=== PATIENT | male | born 1975 | race Caucasian/White ===

== ENCOUNTER 2017-03-23 00:02 | Inpatient (IN) | payer BC ==
[2017-03-23] VITALS (41 sets, daily range): BP systolic 72–124; BP diastolic 53–72; PULSE 96–108; RESP 0–31; TEMP 97.3–99.2; O2SAT 91–100
[~2017-03-23] VITALS: Ht 172.7 cm; Wt 78.9 kg
[2017-03-23] MEDS ORDERED: SODIUM CHLOR 0.9% 1000 ML INJ 1,000 ML IV SCH (00:41)
[2017-03-23] MEDS ORDERED: SODIUM CHLORIDE 0.9% FLUSH 5 ML FLUSH IV FLUSH PRN (00:45)
[2017-03-23] MEDS ORDERED: SODIUM CHLOR 0.9% 1000 ML INJ 1,000 ML IV ONE ×2 (00:45→04:45)
[2017-03-23] MEDS ORDERED: ONDANSETRON HCL 4 MG/2 ML VIAL IV PUSH ONE ×2 (00:45→02:45)
[2017-03-23 01:02] LABS: AUTOMATED NEUTROPHIL # 19.9 TH/MM3 (1.8-7.7); BASOPHIL # 0.6 TH/MM3 (0-0.2); BASOPHIL % 2.4 % (0.0-2.0); HEMATOCRIT 57.7 % (39.0-51.0); LYMPH % 5.2 % (9.0-44.0); LYMPHOCYTE # 1.2 TH/MM3 (1.0-4.8); MEAN CELL VOLUME 89.4 FL (80.0-100.0); MEAN CORPUSCULAR HEMOGLOBIN 29.6 PG (27.0-34.0); MEAN CORPUSCULAR HGB CONC 33.1 % (32.0-36.0); MONO % 7.8 % (0.0-8.0); NEUT % 84.6 % (16.0-70.0); PLATELET COUNT 253 TH/MM3 (150-450); RED BLOOD COUNT 6.45 MIL/MM3 (4.50-5.90); RED CELL DISTRIBUTION WIDTH 11.2 % (11.6-17.2); WHITE BLOOD COUNT 23.5 TH/MM3 (4.0-11.0)
[2017-03-23 01:03] LABS: HEMO FLAGS AUTO DIFF
[2017-03-23 01:16] LABS: APTT (PATIENT) 36.3 SEC (24.3-30.1); PROTHROMBIN TIME - PATIENT 11.3 SEC (9.8-11.6)
[2017-03-23] MEDS ORDERED: DEXT 5%-NACL 0.9% 1000 ML INJ 1,000 ML IV SCH (01:18)
--- NOTE | 2017-03-23 01:18 | PD ---
HPI Chief Complaint: GI Complaint Time Seen by Provider: 00:41 Travel History International Travel<30 days: No Contact w/Intl Traveler<30days: No Traveled to known affect area: No History of Present Illness HPI 41-year-old male presents to the emergency department by private transportation the care of family for evaluation of generalized progressive weakness times one week with multiple episodes of vomiting. Patient was reportedly seen in the urgent care on Saturday and prescribed Levsin and Zofran. reports symptoms have not improved and patient is continued to deteriorate. No report of bilious emesis hematemesis or coffee-ground emesis. Patient's had no diarrhea. Patient recently went on camping trip and friend had vomiting and diarrhea. No known dietary indiscretion. Patient's had poor oral intake. reports patient is diabetic and takes no medications. Patient reportedly has lost a large amount of weight over the past 2 years. Patient's had no fever no headache no chest pain no shortness of breath no abdominal pain no decreased urine output no diarrhea no skin or joint pain or swelling. No prior hospital visit here. [facility] Past Medical History Narrative Medical Diabetes, left leg surgery, no tobacco use, nursing notes reviewed Social History Tobacco Use: No Allergies-Medications (Allergen,Severity, Reaction): Coded Allergies: No Known Allergies (Unverified , 03/23/17) Narrative Medication Zofran and Levsin Review of Systems Except as stated in HPI: all other systems reviewed are Neg General / Constitutional: No: Fever, Chills HENT: No: Congestion Cardiovascular: No: Chest Pain or Discomfort Respiratory: No: Shortness of Breath Gastrointestinal: Positive: Nausea, Vomiting, No: Diarrhea, Abdominal Pain Genitourinary: No: Decreased Urinary Output Musculoskeletal: No: Myalgias, Arthralgias Skin: No Rash Neurologic: Positive: Weakness, Dizziness, Change in Mentation Psychiatric: No: Anxiety Hematologic/Lymphatic: No: Easy Bruising Physical Exam Narrative GENERAL: Well-developed lethargic male GCS 14 SKIN: Warm and dry. HEAD: Normocephalic. EYES: No scleral icterus. No injection or drainage. NECK: Supple, trachea midline. No JVD or lymphadenopathy. CARDIOVASCULAR: Regular rate and rhythm without murmurs, gallops, or rubs. RESPIRATORY: Breath sounds equal bilaterally. No accessory muscle use. GASTROINTESTINAL: Abdomen soft, non-tender, nondistended. MUSCULOSKELETAL: No cyanosis, or edema. BACK: Nontender without obvious deformity. No CVA tenderness. Data Data Last Documented VS Vital Signs Date Time Temp Pulse Resp B/P Pulse Ox O2 Delivery O2 Flow Rate FiO2 03/23/17 02:00 100 18 101/58 99 Room Air 03/23/17 00:45 97.4 Orders Electrocardiogram (03/23/17 00:41) Ammonia (03/23/17 00:41) Complete Blood Count With Diff (03/23/17:41) Comprehensive Metabolic Panel (03/23/17 00:41) Creatine Kinase (Cpk) (03/23/17 00:41) Prothrombin Time / Inr (Pt) (03/23/17:41) Act Partial Throm Time (Ptt) (03/23/17:41) Troponin I (03/23/17 00:41) Thyroid Stimulating Hormone (03/23/17 00:41) Urinalysis - C+S If Indicated (03/23/17 00:41) Lactic Acid Sepsis Protocol (03/23/17 00:41) Blood Culture (03/23/17 00:41) Chest, Single Ap (03/23/17 00:41) Ct Brain W/O Iv Contrast(Rout) (03/23/17 00:41) Blood Glucose (03/23/17 00:41) Ecg Monitoring (03/23/17 00:41) Iv Access Insert/Monitor (03/23/17 00:41) Oximetry (03/23/17 00:41) Sodium Chloride 0.9% Flush (Ns Flush) (03/23/17 00:45) Sodium Chlor 0.9% 1000 Ml Inj (Ns 1000 M (03/23/17 00:41) Sodium Chlor 0.9% 1000 Ml Inj (Ns 1000 M (03/23/17 00:45) Ondansetron Inj (Zofran Inj) (03/23/17 00:45) Drug Screen, Random Urine (03/23/17 00:41) Plans Examiner / Telemetry JOSE.Q8H (03/23/17 01:18) ^ Insert Iv (03/23/17 01:18) Diet Npo (03/23/17 Breakfast) Sodium Chlor 0.9% 1000 Ml Inj (Ns 1000 M (03/23/17 01:18) Dext 5%-Nacl 0.9% 1000 Ml Inj (D5w-Ns 10 (03/23/17 01:18) Insulin Human Regular Inj (Novolin R Inj (03/23/17 01:30) Insulin Regular (Iv Infusion) (Novolin R (03/23/17 01:30) Potassium Chlor 40 Meq Premix (Kcl 40 Me (03/23/17 01:30) Potassium Chlor 40 Meq Premix (Kcl 40 Me (03/23/17 01:30) Potassium Chlor 20 Meq Premix (Kcl 20 Me (03/23/17 01:30) Potassium Chlor 20 Meq Premix (Kcl 20 Me (03/23/17 01:30) Potassium Chlor 20 Meq Premix (Kcl 20 Me (03/23/17 01:30) Potassium Chlor 20 Meq Premix (Kcl 20 Me (03/23/17 01:30) Potassium Chlor 20 Meq Premix (Kcl 20 Me (03/23/17 01:30) Potassium Chlor 20 Meq Premix (Kcl 20 Me (03/23/17 01:30) Sodium Bicarbonate 8.4% Inj (Sodium Bica (03/23/17 01:30) Sodium Bicarbonate 8.4% Inj (Sodium Bica (03/23/17 01:30) Sodium Phosphate Inj (Sodium Phosphate I (03/23/17 01:30) Hemoglobin (Hgb) A1c (03/23/17 01:18) Basic Metabolic Panel (Bmp) (03/23/17 12:18) Basic Metabolic Panel (Bmp) (03/23/17 18:18) Basic Metabolic Panel (Bmp) (03/24/17 00:18) Magnesium (Mg) (03/23/17 12:18) Magnesium (Mg) (03/23/17 18:18) Magnesium (Mg) (03/24/17 00:18) Phosphorus (Po4) (03/23/17 12:18) Phosphorus (Po4) (03/23/17 18:18) Phosphorus (Po4) (03/24/17 00:18) Beta Hydroxybutyrate (Acetone) (03/23/17 12:18) Beta Hydroxybutyrate (Acetone) (03/24/17 00:18) Blood Gas Venous Ph (03/23/17 01:18) Piperacil-Tazo 4.5 Gm Premix (Zosyn 4.5 (03/23/17 01:45) Vancomycin Inj (Vancomycin Inj) (03/23/17 01:45) Potassium Chlor 10 Meq Premix (Kcl 10 Me (03/23/17 02:00) Admit Order (Ed Use Only) (03/23/17 ) ^ Saline Lock (03/23/17 02:07) Resp Oxygen Haider C Titrat 1-4 L (03/23/17 ) Notify Dr: Other (03/23/17 02:07) Sodium Chloride 0.9% Flush (Ns Flush) (03/23/17 09:00) Sodium Chloride 0.9% Flush (Ns Flush) (03/23/17 02:15) Labs Laboratory Tests Test 03/23/17 03/23/17 00:43 01:45 White Blood Count 23.5 TH/MM3 Red Blood Count 6.45 MIL/MM3 Hemoglobin 19.1 GM/DL Hematocrit 57.7 % Mean Corpuscular Volume 89.4 FL Mean Corpuscular Hemoglobin 29.6 PG Mean Corpuscular Hemoglobin 33.1 % Concent Red Cell Distribution Width 11.2 % Platelet Count 253 TH/MM3 Mean Platelet Volume 11.5 FL Neutrophils (%) (Auto) 84.6 % Lymphocytes (%) (Auto) 5.2 % Monocytes (%) (Auto) 7.8 % Eosinophils (%) (Auto) 0.0 % Basophils (%) (Auto) 2.4 % Neutrophils # (Auto) 19.9 TH/MM3 Lymphocytes # (Auto) 1.2 TH/MM3 Monocytes # (Auto) 1.8 TH/MM3 Eosinophils # (Auto) 0.0 TH/MM3 Basophils # (Auto) 0.6 TH/MM3 CBC Comment AUTO DIFF Differential Total Cells 100 Counted Neutrophils % (Manual) 63 % Band Neutrophils % 24 % Lymphocytes % 5 % Monocytes % 8 % Neutrophils # (Manual) 20.4 TH/MM3 Differential Comment FINAL DIFF MANUAL Platelet Estimate NORMAL Platelet Morphology Comment NORMAL Red Cell Morphology Comment NORMAL Prothrombin Time 11.3 SEC Prothromb Time International 1.0 RATIO Ratio Activated Partial 36.3 SEC Thromboplast Time Sodium Level 115 MEQ/L Potassium Level 3.0 MEQ/L Chloride Level 72 MEQ/L Carbon Dioxide Level 8.1 MEQ/L Anion Gap 35 MEQ/L Blood Urea Nitrogen 72 MG/DL Creatinine 2.80 MG/DL Estimat Glomerular Filtration 25 ML/MIN Rate Random Glucose 611 MG/DL Lactic Acid Level 2.5 mmol/L Calcium Level 6.6 MG/DL Protein Corrected Calcium 6.7 MG/DL Total Bilirubin 1.0 MG/DL Aspartate Amino Transf 19 U/L (AST/SGOT) Alanine Aminotransferase 16 U/L (ALT/SGPT) Alkaline Phosphatase 100 U/L Ammonia 35 MCMOL/L Total Creatine Kinase 207 U/L Troponin I LESS THAN 0.02 NG/ML Total Protein 7.0 GM/DL Albumin 3.3 GM/DL Thyroid Stimulating Hormone 0.370 uIU/ML 3rd Gen Urine Color YELLOW Urine Turbidity CLEAR Urine pH 5.0 Urine Specific [place] 1.023 Urine Protein 30 mg/dL Urine Glucose (UA) 1000 OR GREATER mg/dL Urine Ketones 80 OR GREATER mg/dL Urine Occult Blood MOD Urine Nitrite NEG Urine Bilirubin NEG Urine Leukocyte Esterase NEG Urine RBC 3-5 /hpf Urine WBC 0-2 /hpf Urine Squamous Epithelial 0-5 /hpf Cells Urine Bacteria NONE /hpf Microscopic Urinalysis Comment CULT NOT INDICATED Venous Blood pH 7.16 Urine Opiates Screen NEG Urine Barbiturates Screen NEG Urine Amphetamines Screen NEG Urine Benzodiazepines Screen NEG Urine Cocaine Screen NEG Urine Cannabinoids Screen NEG MDM Medical Decision Making Medical Screen Exam Complete: Yes Emergency Medical Condition: Yes Medical Record Reviewed: Yes Interpretation(s) Vital Signs Date Time Temp Pulse Resp B/P Pulse Ox O2 Delivery O2 Flow Rate FiO2 03/23/17 01:45 100 18 101/55 100 Room Air 03/23/17 01:30 100 20 102/59 99 Room Air 03/23/17 01:20 98 18 110/66 100 Room Air 03/23/17 01:10 100 18 108/67 100 Room Air 03/23/17 01:00 98 18 103/61 100 Room Air 03/23/17 00:50 96 18 93/59 99 Room Air 03/23/17 00:45 97.4 100 20 84/55 99 Room Air 03/23/17 00:40 98 Room Air 03/23/17 00:30 100 20 84/55 98 03/23/17 00:14 99.2 103 16 72/[address] 03/23/17 0041 Signed Impressions: Service Date/Time: Thursday, March 23, 2017 04:32 - CONCLUSION: 4 mm hyperdense lesion adjacent to left foramen of Antony could be a colloid cyst without evidence of ventricular enlargement. Non-emergent brain MRI is recommended to confirm. Gregory Thomason MD Chest X-Ray 03/23/17 0041 Signed Impressions: Service Date/Time: Thursday, March 23, 2017 01:51 - CONCLUSION: Normal examination. Gregory Thomason MD CBC & BMP Diagram 03/23/17 00:43 Differential Diagnosis DKA, sepsis, electrolyte disturbance, renal failure, dehydration, ACS Narrative Course Patient placed on library monitor IV access obtained EKG sinus rhythm rate [address] elevation or injury pattern change noted poor R progression septally in V1 V2; specimens collected and sent for resulting as well as blood cultures and lactic acid Patient administered 2 L normal saline wide open; bedside glucose high Patient given weight based regular insulin 8 units IV CBC is automated differential leukocytosis with left shift; lactic acid resulted at 2.5; patient administered Zosyn and vancomycin DKA protocol initiated At 1:45 AM informed of abnormal labs specifically Call was placed to pharmacy delivery driver for admission for DKA, severe sepsis/septic shock , electrolyte disturbance, with venous pH of 7.16 and hypokalemia potassium of 3.0. Patient had been administered additional liter of normal saline. The heart rate and blood pressure with good response. GCS 15. Critical Care Narrative Aggregate critical care time was 40 minutes. Time to perform other separately billable procedures was not included in the critical care time. My time did not include minutes spent treating any other patients simultaneously or on activities that did not directly contribute to the patient's treatment. The services I provided to this patient were to treat and/or prevent clinically significant deterioration that could result in: Deteriorating metabolic derangement, septic shock, cardiogenic shock, hypovolemic shock, I provided critical care services requiring my management, as noted below: Chart data review, documentation time, medication orders and management, vital sign assessments/reviewing monitor data, ordering and reviewing lab tests, ordering and interpreting/reviewing x-rays and diagnostic studies, care of the patient and discussion of the patient with the admitting physicians. Procedures Procedure Narrative CENTRAL VENOUS LINE: The site was prepped with Betadine and sterilely draped. It was infiltrated with 1% lidocaine plain. The deep vein cannulation was unsuccessful at entering the right femoral vein. Procedure was discontinued. The site was sterilely dressed. The patient tolerated the procedure well. CENTRAL VENOUS LINE: The site was prepped with Betadine and sterilely draped. It was infiltrated with 1% lidocaine plain. The deep vein was cannulated using normal Seldinger technique. A triple lumen central line was placed in the left femoral vein site and secured with simple interrupted suture. The site was sterilely dressed. The patient tolerated the procedure well. Sepsis Criteria SIRS Criteria (2 or more): Heart rate over 90, WBC > 55217, < 4000 or > 10% bands Severe Sepsis (+one): Hypotension, Acute Oliguria/Renal Failure Physician Communication Physician Communication discussed with Dr Leary will admit to his ICU service to [facility] Diagnosis Primary Impression: DKA (diabetic ketoacidoses) Qualified Code: E13.10 - Diabetic ketoacidosis without coma associated with type 2 diabetes mellitus Additional Impression: Severe sepsis Admitting Information Admitting Physician Requests: Admit Valarie Kaba MD March 23, 2017 01:17
[2017-03-23 01:23] LABS: ALT (GPT) 16 U/L (12-78); ANION GAP 35 MEQ/L (5-15); AST (GOT) 19 U/L (15-37); BICARBONATE 8.1 MEQ/L (21.0-32.0); BLOOD UREA NITROGEN 72 MG/DL (7-18); CHLORIDE 72 MEQ/L (98-107); CREATINE KINASE 207 U/L (39-308); GLOMERULAR FILTRATION RATE 25 ML/MIN (>89)
[2017-03-23] MEDS ORDERED: SODIUM PHOSPHATE INJ 15 MMOL in SODIUM CHLORIDE 0.9% INJ 100 ML IV PRN (01:30)
[2017-03-23] MEDS ORDERED: INSULIN HUMAN REGULAR 1,000 UNITS/10 ML VIAL IV PUSH ONE (01:30)
[2017-03-23] MEDS ORDERED: POTASSIUM CHLOR 40 MEQ PREMIX 100 ML IV PRN ×2 (01:30)
[2017-03-23] MEDS ORDERED: SODIUM BICARBONATE 8.4% SOLN 50 MEQ/50 ML VIAL IV PRN ×2 (01:30)
[2017-03-23] MEDS ORDERED: POTASSIUM CHLOR 20 MEQ PREMIX 100 ML IV PRN ×5 (01:30)
[2017-03-23] MEDS ORDERED: INSULIN REGULAR (IV INFUSION) 100 UNITS in SODIUM CHLORIDE 0.9% INJ 99 ML IV SCH (01:30)
[2017-03-23 01:31] LABS: BANDS 24 % (0-6); NEUTROPHIL # MANUAL DIFF 20.4 TH/MM3 (1.8-7.7); POLYS (SEG NEUTROPHILS) 63 % (16-70); WBC DIFF SAMPLE 100
[2017-03-23 01:32] LABS: PLATELET ESTIMATE SMEAR NORMAL (NORMAL); PLATELET MORPHOLOGY NORMAL (NORMAL); SCAN/DIFF FINAL DIFF MANUAL
[2017-03-23 01:33] LABS: ALKALINE PHOSPHATASE 100 U/L (45-117)
[2017-03-23 01:38] LABS: CALCIUM-PROTEIN CORRECTED 6.7 MG/DL (8.5-10.1)
[2017-03-23 01:39] LABS: SODIUM (NA) 115 MEQ/L (136-145)
[2017-03-23] MEDS ORDERED: PIPERACIL-TAZO 4.5 GM PREMIX 100 ML IV ONE (01:45)
[2017-03-23] MEDS ORDERED: VANCOMYCIN INJ 1,000 MG in SODIUM CHLOR 0.9% 250 ML INJ 250 ML IV ONE (01:45)
[2017-03-23 02:06] LABS: NITRITE,URINE NEG (NEG)
[2017-03-23 02:13] LABS: BLOOD, URINE MOD (NEG); COCAINE, URINE NEG (NEG); GLUCOSE,URINE 1000 OR GREATER mg/dL (NEG); KETONE, URINE 80 OR GREATER mg/dL (NEG); URINE COLOR YELLOW (YELLW/STRAW); WBC, URINE 0-2 /hpf (0-5)
[2017-03-23 02:14] LABS: COMMENT (UR) CULT NOT INDICATED; CULTURE IF INDICATED CULT NOT INDICATED; SQUAMOUS EPITHELIAL CELL URINE 0-5 /hpf (0-5)
[2017-03-23] MEDS ORDERED: SENNOSIDES 8.6 MG TAB PO PRN (02:15)
[2017-03-23] MEDS ORDERED: MISCELLANEOUS NURSING INFORMATION XX SCH (02:15)
[2017-03-23] MEDS ORDERED: CHLORHEXIDINE GLUCONATE 2 % 1 PACK (2 CLOTHS) TOP PRN (02:15)
[2017-03-23] MEDS ORDERED: LACTULOSE SYRUP 20 GM/30 ML CUP PO PRN (02:15)
[2017-03-23] MEDS ORDERED: MAGNESIUM HYDROXIDE SUSP 30 ML CUP PO PRN (02:15)
[2017-03-23] MEDS: POTASSIUM CHLOR 10 MEQ PREMIX 100 ML IV SCH ×3 (02:15→05:45)
[2017-03-23] MEDS ORDERED: Vancomycin Consult Pharmacy 1 EA OTHER SCH (02:15)
[2017-03-23] MEDS ORDERED: BISACODYL 10 MG SUPP RECTAL PRN (02:15)
[2017-03-23] MEDS ORDERED: SODIUM CHLORIDE 0.9% FLUSH 10 ML FLUSH IVF PRN (02:15)
--- NOTE | 2017-03-23 02:19 | RADHPO ---
EXAM DATE/TIME: 03/23/2017 01:51 [facility] COMPARISON: No previous studies available for comparison. INDICATIONS : Syncope. MEDICAL HISTORY : None. SURGICAL HISTORY : None. ENCOUNTER: Initial ACUITY: 1 day PAIN SCORE: 6/10 LOCATION: Bilateral chest FINDINGS: A single view of the chest demonstrates the lungs to be symmetrically aerated without evidence of mas s, infiltrate or effusion. The cardiomediastinal contours are unremarkable. Osseous structures are intact. CONCLUSION: Normal examination. Gregory Thomason MD on March 23, 2017 at 2:18 Board Certified Radiologist. This report was verified electronically.
[2017-03-23 02:22] LABS: AMPHETAMINE, URINE NEG (NEG); BARBITURATES, URINE NEG (NEG)
[2017-03-23] MEDS: SODIUM CHLOR 0.9% 1000 ML INJ 1,000 ML IV SCH ×2 (02:49→07:56)
[2017-03-23 02:54] LABS: LACTIC ACID GHOST NOT REPORTABLE
[2017-03-23] MEDS ORDERED: METOCLOPRAMIDE HCL 10 MG/2 ML VIAL IV PRN ×2 (03:30)
[2017-03-23] MEDS ORDERED: VANCOMYCIN INJ 1,200 MG in SODIUM CHLOR 0.9% 250 ML INJ 250 ML IV SCH (04:00)
--- NOTE | 2017-03-23 04:57 | RADHPO ---
EXAM DATE/TIME: 03/23/2017 04:32 [facility] COMPARISON: No previous studies available for comparison. INDICATIONS : Altered mental status. RADIATION DOSE: 67.38 CTDIvol (mGy) MEDICAL HISTORY : Diabetes mellitus type 2. SURGICAL HISTORY : None. ENCOUNTER: Initial ACUITY: 1 day PAIN SCALE: 0/10 LOCATION: cranial TECHNIQUE: Multiple contiguous axial images were obtained of the head. Using automated exposure control and adj ustment of the mA and/or kV according to patient size, radiation dose was kept as low as reasonably a chievable to obtain optimal diagnostic quality images. FINDINGS: CEREBRUM: There is a 4 mm hyperdense lesion near the foramen of Antony on the left could be a small colloid cys t .The ventricles are normal for age. No evidence of midline shift, mass lesion, hemorrhage or acute infarction. No extra-axial fluid collections are seen. POSTERIOR FOSSA: The cerebellum and brainstem are intact. The 4th ventricle is midline. The cerebellopontine angle i s unremarkable. EXTRACRANIAL: The visualized portion of the orbits is intact. SKULL: The calvaria is intact. No evidence of skull fracture. Hypoplastic right maxillary sinus CONCLUSION: 4 mm hyperdense lesion adjacent to left foramen of Antony could be a colloid cyst without evidence of ventricular enlargement. Non-emergent brain MRI is recommended to confirm. Gregory Thomason MD on March 23, 2017 at 4:54 Board Certified Radiologist. This report was verified electronically.
[2017-03-23] MEDS: HEPARIN SODIUM - SQ 10,000 UNITS/ML VIAL SQ SCH ×2 (04:59→17:26)
[2017-03-23] MEDS: CHLORHEXIDINE GLUCONATE 2 % 1 PACK (2 CLOTHS) TOP SCH (05:46)
[2017-03-23 05:57] LABS: BICARBONATE 9.4 MEQ/L (21.0-32.0); MAGNESIUM 3.4 MG/DL (1.5-2.5)
[2017-03-23 06:05] LABS: POTASSIUM 2.9 MEQ/L (3.5-5.1)
[2017-03-23 06:20] LABS: CALCIUM-PROTEIN CORRECTED 7.1 MG/DL (8.5-10.1)
[2017-03-23] MEDS: ONDANSETRON HCL 4 MG/2 ML VIAL IV PRN (07:44)
[2017-03-23] MEDS: PANTOPRAZOLE SODIUM 40 MG VIAL IV SCH (08:22)
[2017-03-23] MEDS ORDERED: SODIUM CHLOR 0.45% 1000 ML INJ 1,000 ML IV SCH (08:30)
--- NOTE | 2017-03-23 08:42 | HHI.HP ---
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 Date of admission 03/23/2017. Past medical history includes undiagnosed diabetes. Patient was recently on a camping trip [facility] Patient was in his normal state of health until Saturday when experiencing intractable nausea and vomiting. No diarrhea. No hematemesis or coffee ground emesis. Initially treated at urgent care with Levsin and Zofran. Symptoms persisted percent to [facility]. CT head revealed possible 4 mm colloid cyst at left foramen of Antony. Chest x-ray unremarkable. Was noted to be hyponatremic, hypokalemic, leukocytosis with elevated bands with an elevated blood sugar and elevated beta hydroxybutyrate. Was given 2 L normal saline. 8 units IV insulin in the ED initiated on DKA protocol protocol. A left femoral central line placed by ED physician. Review of Systems Constitutional: COMPLAINS OF: Fatigue, Fever, DENIES: Weight gain Endocrine: DENIES: Heat/cold intolerance Eyes: DENIES: Blurred vision, Diplopia Ears, nose, mouth, throat: DENIES: Tinnitus, Sinus Pain Respiratory: COMPLAINS OF: Shortness of breath, DENIES: Apneas Cardiovascular: DENIES: Chest pain Gastrointestinal: COMPLAINS OF: Abdominal pain, Nausea, Vomiting, DENIES: Constipation Genitourinary: DENIES: Sexual dysfunction Musculoskeletal: DENIES: Joint pain Integumentary: DENIES: Abnormal pigmentation, Rash Hematologic/lymphatic: COMPLAINS OF: Bruising Immunologic/allergic: COMPLAINS OF: Urticaria, DENIES: Eczema Neurologic: DENIES: Abnormal gait Psychiatric: COMPLAINS OF: Confusion, DENIES: Anxiety Past Family Social History Allergies: Coded Allergies: No Known Allergies (Unverified , 03/23/17) Past Medical History Diabetes mellitus? Past Surgical History Status post SNF left leg crush injury 1996 Reported Medications None Active Ordered Medications Reviewed in EMR Family History Father and brother with diabetes mellitus. Mother from cancer unknown type Social History Social alcohol. Denies tobacco or IV drug use Physical Exam Vital Signs Vital Signs Date Time Temp Pulse Resp B/P Pulse Ox O2 Delivery O2 Flow Rate FiO2 03/23/17 06:00 105 03/23/17 06:00 102 25 108/65 98 03/23/17 05:30 102 20 105/66 100 03/23/17 05:30 98.0 105 28 97/63 97 03/23/17 05:00 98.5 102 20 110/63 100 Room Air 03/23/17 04:30 103 20 118/61 98 Room Air 03/23/17 04:00 102 20 110/66 97 Room Air 03/23/17 03:30 103 20 103/67 99 Room Air 03/23/17 03:00 100 18 109/65 98 Room Air 03/23/17 02:30 102 20 109/66 99 Room Air 03/23/17 02:29 98 03/23/17 02:00 100 18 101/58 99 Room Air 03/23/17 01:45 100 18 101/55 100 Room Air 03/23/17 01:30 100 20 102/59 99 Room Air 03/23/17 01:20 98 18 110/66 100 Room Air 03/23/17 01:10 100 18 108/67 100 Room Air 03/23/17 01:00 98 18 103/61 100 Room Air 03/23/17 00:50 96 18 93/59 99 Room Air 03/23/17 00:45 97.4 100 20 84/55 99 Room Air 03/23/17 00:40 98 Room Air 03/23/17 00:30 100 20 84/55 98 03/23/17 00:14 99.2 103 16 72/53 98 Physical Exam GENERAL: 40-year-old male, critically ill currently resting in bed in mild respiratory distress likely metabolic SKIN: Warm and dry. Multiple tattoos bilateral upper extremity's. Multiple scabs well-healed bilateral lower extremities HEAD: Atraumatic. Normocephalic. EYES: Pupils equal and round around 3 mm bilaterally and reactive. No scleral icterus. No injection or drainage. ENT: No nasal bleeding or discharge. Mucous membranes pink and light. Oropharynx without erythema. NECK: Trachea midline. No JVD. CARDIOVASCULAR: Tachycardic, RR. S1, S2. No S4 without murmur RESPIRATORY: No accessory muscle use. Clear to auscultation. Breath sounds equal bilaterally. GASTROINTESTINAL: Abdomen soft, tender to deep palpation. Voluntary guarding. No rigidity. This is not a surgical abdomen MUSCULOSKELETAL: Extremities without significant peripheral edema. No obvious deformities. NEUROLOGICAL: Awake and alert. No obvious cranial nerve deficits. Motor grossly within normal limits. Five out of 5 muscle strength in the arms and legs. Raspy speech. Laboratory Laboratory Tests Test 03/23/17 03/23/17 03/23/17 03/23/17 00:43 01:45 03:05 04:53 White Blood Count 23.5 Red Blood Count 6.45 Hemoglobin 19.1 Hematocrit 57.7 Mean Corpuscular Volume 89.4 Mean Corpuscular Hemoglobin 29.6 Mean Corpuscular Hemoglobin 33.1 Concent Red Cell Distribution Width 11.2 Platelet Count 253 Mean Platelet Volume 11.5 Neutrophils (%) (Auto) 84.6 Lymphocytes (%) (Auto) 5.2 Monocytes (%) (Auto) 7.8 Eosinophils (%) (Auto) 0.0 Basophils (%) (Auto) 2.4 Neutrophils # (Auto) 19.9 Lymphocytes # (Auto) 1.2 Monocytes # (Auto) 1.8 Eosinophils # (Auto) 0.0 Basophils # (Auto) 0.6 CBC Comment AUTO DIFF Differential Total Cells 100 Counted Neutrophils % (Manual) 63 Band Neutrophils % 24 Lymphocytes % 5 Monocytes % 8 Neutrophils # (Manual) 20.4 Differential Comment FINAL DIFF MANUAL Platelet Estimate NORMAL Platelet Morphology Comment NORMAL Red Cell Morphology Comment NORMAL Prothrombin Time 11.3 Prothromb Time International 1.0 Ratio Activated Partial 36.3 Thromboplast Time Sodium Level 115 Potassium Level 3.0 Chloride Level 72 Carbon Dioxide Level 8.1 Anion Gap 35 Blood Urea Nitrogen 72 Creatinine 2.80 Estimat Glomerular Filtration 25 Rate Random Glucose 611 Lactic Acid Level 2.5 1.3 Calcium Level 6.6 Protein Corrected Calcium 6.7 Total Bilirubin 1.0 Aspartate Amino Transf 19 (AST/SGOT) Alanine Aminotransferase 16 (ALT/SGPT) Alkaline Phosphatase 100 Ammonia 35 Total Creatine Kinase 207 Troponin I LESS THAN 0.02 Total Protein 7.0 Albumin 3.3 Thyroid Stimulating Hormone 0.370 3rd Gen Urine Color YELLOW Urine Turbidity CLEAR Urine pH 5.0 Urine Specific Lutz 1.023 Urine Protein 30 Urine Glucose (UA) 1000 OR GREATER Urine Ketones 80 OR GREATER Urine Occult Blood MOD Urine Nitrite NEG Urine Bilirubin NEG Urine Leukocyte Esterase NEG Urine RBC 3-5 Urine WBC 0-2 Urine Squamous Epithelial 0-5 Cells Urine Bacteria NONE Microscopic Urinalysis Comment CULT NOT INDICATED Venous Blood pH 7.16 7.19 Urine Opiates Screen NEG Urine Barbiturates Screen NEG Urine Amphetamines Screen NEG Urine Benzodiazepines Screen NEG Urine Cocaine Screen NEG Urine Cannabinoids Screen NEG Test 03/23/17 05:05 Sodium Level 124 Potassium Level 2.9 Chloride Level 85 Carbon Dioxide Level 9.4 Anion Gap 30 Blood Urea Nitrogen 66 Creatinine 2.60 Estimat Glomerular Filtration 27 Rate Random Glucose 377 Calcium Level 6.9 Protein Corrected Calcium 7.1 Phosphorus Level 3.5 Magnesium Level 3.4 Total Protein 6.8 Date/Time Procedure Status Source Growth 03/23/17 02:34 Urine Culture Received Urine Catheterized Urine Pending 03/23/17 00:50 Aerobic Blood Culture Received Blood Peripheral Pending 03/23/17 00:50 Anaerobic Blood Culture Received Blood Peripheral Pending Result Diagram: 03/23/17 0043 03/23/17 0505 Imaging Last Impressions Head CT 03/23/1740 Signed Impressions: Service Date/Time: Thursday, March 23, 2017 04:32 - CONCLUSION: 4 mm hyperdense lesion adjacent to left foramen of Antony could be a colloid cyst without evidence of ventricular enlargement. Non-emergent brain MRI is recommended to confirm. Gregory Thomason MD Chest X-Ray 03/23/1740 Signed Impressions: Service Date/Time: Thursday, March 23, 2017 01:51 - CONCLUSION: Normal examination. Gregory Thomason MD Assessment and Plan Assessment and Plan Neuro/Psych: Acute toxic metabolic encephalopathy 4 mm lesion at left foramen of Antony Encephalopathy likely secondary to metabolic derangement. ABG pending CT head 03/19 revealed a 4 mm lesion at the left frontal neuro. Possible colloid cyst. Nonemergent MRI brain recommended Acetaminophen for fever Marana/morphine as needed for pain management CV: Severe sepsis Hypovolemic shock Lactic acidosis Status post 2 L normal saline ED. Currently on normal saline at 250 cc an hour Lactic acid has cleared. Currently not requiring vasopressors and/or antihypertensives. Follow-up on EKG and troponin. RESP: Acute respiratory insufficiency secondary to metabolic arrangement ABG ordered. Nasal cannula to maintain saturations greater than or equal to 92% Incentive spirometry while awake Chest x-ray revealed no acute cardio pulmonary findings GI: Nausea/vomiting - intractable Hyperammonia Zofran 4 mg every 6 hours as needed for nausea Will order abdominal ultrasound today. Amylase and lipase ordered. Liver function tests within normal limits Lactulose daily. Follow-up ammonia level in a.m. Falcon if needed for accurate I's and O's in a critically ill patient ID Viral etiology needs to be ruled out. No current indication for lumbar puncture at this time. No meningeal signs. Zofran/vancomycin day #1 Pertinent cultures 03/23 - blood cultures 2 -pending 03/23 - UA - pending Influenza ordered RENAL: Acute kidney injury - likely prerenal Renal ultrasound to rule out hydronephrosis Urine eosinophils and electrolytes ordered Serial BMPs monitor for improved creatinine Accurate I's and O's Monitor urine output HEME: Leukocytosis - bandemia Polycythemia - likely secondary to dehydration Elevated PTT Monitor CBC daily. Follow trends Repeat PTT in a.m. Doubt factor deficiency ENDO DKA Status post 2 L normal saline in the ED. Received 8 units insulin IV 1. Insulin drip resumed once potassium has been corrected BMP, mag, phosphorus every 6 hours. Beta hydroxybutyrate every 12 hours. ABG is pending Hemoglobin A1c and lipids ordered FEN Hyponatremia - likely hyperosmolar secondary to hyperglycemia - serum osm pending Hypokalemia Hypermagnesium Replace electrolytes per DKA protocol MSK PT evaluate and treat Access - Utilize left femoral TLC placed 03/23 by ED physician Prophylaxis - GI - Protonix - DVT - SCD/heparin subcutaneous Critical Care: The total critical care time was 55 minutes. Time to perform other separately billable procedures was not included in the critical care time. Code Status Full code Discussed Condition With Patient. PATROL CAPTAIN. Care plan discussed all questions answered. Problem Qualifiers (1) DKA (diabetic ketoacidoses): Qualified Code: E13.10 - Diabetic ketoacidosis without coma associated with type 2 diabetes mellitus (2) Leukocytosis: Qualified Code: D72.825 - Bandemia Ravi Rosario MD March 23, 2017 08:42
[2017-03-23] MEDS: LACTULOSE SYRUP 20 GM/30 ML CUP PO SCH (09:00)
[2017-03-23] MEDS ORDERED: ACETAMINOPHEN/HYDROcodone 325 MG/5 MG TAB PO PRN (09:00)
[2017-03-23] MEDS ORDERED: MORPHINE SULFATE 4 MG/ML INJ IV PRN (09:00)
[2017-03-23] MEDS: SODIUM CHLORIDE 0.9% FLUSH 10 ML FLUSH IV FLUSH SCH ×2 (09:00→21:15)
[2017-03-23] MEDS: DOCUSATE SODIUM 50 MG/SENNA 8.6 MG TAB PO SCH ×2 (09:00→21:00)
[2017-03-23] MEDS ORDERED: ACETAMINOPHEN 325 MG TAB PO PRN (09:00)
[2017-03-23 09:31] LABS: AMYLASE 130 U/L (25-115)
[2017-03-23] MEDS ORDERED: CALCIUM GLUCONATE INJ 1 GM in SODIUM CHLORIDE 0.9% INJ 100 ML IV ONE (10:00)
[2017-03-23 10:19] LABS: BLOOD GAS BASE EXCESS -23.2 mmol/L (-2-2); BLOOD GAS CARBOXYHEMOGLOBIN 1.6 % (0-4); BLOOD GAS HCO3 4 mmol/L (22-26); BLOOD GAS METHEMOGLOBIN 1.5 % (0-2); BLOOD GAS O2 HGB SATURATION 93 % (90-100); BLOOD GAS OXYGEN CONTENT 22.1 Vol % (12.0-20.0); BLOOD GAS PCO2 10 mmHg (38-42); BLOOD GAS PO2 94 mmHg (61-120); BLOOD GAS TOTAL HGB 16.8 G/DL (12.0-16.0); TEMP CORR TO 98.6
[2017-03-23 10:20] LABS: CRITICAL VALUE YES; DRAW SITE RT RADIAL; FIO2 21 %; NUMBER OF ARTERIAL PUNCTURES 1; OXYGEN DEVICE ROOM AIR; STAT NO; ULNAR PULSE PRESENT
[2017-03-23] MEDS ORDERED: SODIUM BICARBONATE 8.4% INJ 50 MEQ/50 ML SYR IV PUSH ONE (11:00)
--- NOTE | 2017-03-23 11:51 | RADHPO ---
EXAM DATE/TIME: 03/23/2017 11:11 [place] COMPARISON: No previous studies available for comparison. INDICATIONS : Pancreatitis is suspected, septic, nausea. ORAL CONTRAST: No oral contrast ingested. RADIATION DOSE: 19.72 CTDIvol (mGy) MEDICAL HISTORY : Sepsis. Diabetes SURGICAL HISTORY : None. ENCOUNTER: Initial ACUITY: 2 days PAIN SCALE: 8/10 LOCATION: abdomen TECHNIQUE: Volumetric scanning of the abdomen was performed. Using automated exposure control and adjustment of the mA and/or kV according to patient size, radiation dose was kept as low as reasonably achievable to obtain optimal diagnostic quality images. FINDINGS: Examination quality degraded by respiratory motion artifact. LOWER LUNGS: The visualized lower lungs are clear. There is motion artifact. LIVER: Homogeneous density without lesion. There is no dilation of the biliary tree. No calcified gallston es. SPLEEN: Normal size without lesion. PANCREAS: No inflammatory changes are appreciated. KIDNEYS: Normal in size and shape. There is no mass, stone, or hydronephrosis. ADRENAL GLANDS: Within normal limits. AORTA/RETROPERITONEAL: There is no aneurysm or lymphadenopathy. BOWEL/MESENTERY: The stomach and visualized small and large bowel demonstrate no abnormality. There is a small hiatal hernia with severe wall thickening versus mass of the distal esophagus. MUSCULOSKELETAL: Within normal limits for patient age. CONCLUSION: 1. Examination quality degraded by motion artifact. However, no pancreas abnormality is identified. 2. The only abnormality seen is a small hiatal hernia with severe wall thickening of the distal esoph caio versus distal esophageal mass. Colten Arce MD on March 23, 2017 at 11:46 Board Certified Radiologist. This report was verified electronically.
[2017-03-23] MEDS: THIAMINE INJ 100 MG in SODIUM CHLORIDE 0.9% INJ 100 ML IV SCH (12:57)
[2017-03-23] MEDS: PIPERACIL-TAZO 2.25 GM PREMIX 50 ML IV SCH ×2 (12:58→17:31)
[2017-03-23] MEDS ORDERED: DEXT 5%-NACL 0.45% 1000 ML INJ 1,000 ML IV SCH (14:00)
[2017-03-23 15:14] LABS: ANION GAP 21 MEQ/L (5-15); BICARBONATE 13.4 MEQ/L (21.0-32.0); BLOOD UREA NITROGEN 42 MG/DL (7-18); CHLORIDE 98 MEQ/L (98-107); GLOMERULAR FILTRATION RATE 41 ML/MIN (>89); POTASSIUM 3.2 MEQ/L (3.5-5.1); SODIUM (NA) 132 MEQ/L (136-145)
[2017-03-23 15:27] LABS: BETA-HYDROXYBUTYRATE 7.15 MMOL/L (0.00-0.39)
[2017-03-23] MEDS ORDERED: DEXTROSE 5% IV SCH ×4 (15:30→17:00)
[2017-03-23] MEDS ORDERED: POTASSIUM CHLORIDE IV SCH ×4 (15:30→17:00)
[2017-03-23] MEDS ORDERED: NACL 0.3% IV SCH (15:30)
--- NOTE | 2017-03-23 16:30 | EKG ---
Date Performed: 03/23/2017 Time Performed: 00:57:24 PTAGE: 41 years EKG: Sinus rhythm . Low QRS voltages in precordial leads Nonspecific ST-T change Borderline ECG NO PREVIOUS TRACING DOCTOR: Pedro Alvarez Interpretating Date/Time 03/23/2017 16:29:55
[2017-03-23] MEDS ORDERED: SODIUM PHOSPHATE INJ 30 MMOL in SODIUM CHLOR 0.9% 250 ML INJ 250 ML IV ONE ×2 (17:00→23:00)
[2017-03-23] MEDS ORDERED: POTASSIUM CHLORIDE INJ 30 MEQ in SODIUM CHLORIDE 0.9% INJ 100 ML IV-CENTRAL ONE (17:00)
[2017-03-23] MEDS ORDERED: [UNRECOGNIZED DRUG - OTHER] IV SCH ×3 (17:00)
[2017-03-23] MEDS ORDERED: SODIUM CHLORIDE IV SCH ×3 (17:00)
[2017-03-23 18:58] LABS: BICARBONATE 19.2 MEQ/L (21.0-32.0)
[2017-03-23 19:01] LABS: POTASSIUM 2.9 MEQ/L (3.5-5.1)
[2017-03-23] MEDS: POTASSIUM CHLOR 40 MEQ PREMIX 100 ML IV SCH ×2 (20:58→22:59)
[2017-03-23] MEDS: POTASSIUM CHLORIDE INJ 10 MEQ in DEXTROSE 5%-NACL 0.225% INJ 1,000 ML IV SCH (21:13)
[2017-03-24] VITALS (20 sets, daily range): BP systolic 98–120; BP diastolic 55–72; PULSE 90–108; RESP 18–28; TEMP 98.5–98.8; O2SAT 91–97
[2017-03-24] MEDS: PIPERACIL-TAZO 2.25 GM PREMIX 50 ML IV SCH (01:00)
[2017-03-24] MEDS: HEPARIN SODIUM - SQ 10,000 UNITS/ML VIAL SQ SCH ×2 (01:00→13:45)
[2017-03-24 03:25] LABS: MAGNESIUM 2.8 MG/DL (1.5-2.5)
[2017-03-24] MEDS: POTASSIUM CHLORIDE INJ 10 MEQ in DEXTROSE 5%-NACL 0.225% INJ 1,000 ML IV SCH (03:47)
[2017-03-24] MEDS: CHLORHEXIDINE GLUCONATE 2 % 1 PACK (2 CLOTHS) TOP SCH (04:00)
[2017-03-24 04:35] LABS: BASOPHIL # 0.2 TH/MM3 (0-0.2); HEMATOCRIT 39.9 % (39.0-51.0); HEMO FLAGS DIFF FINAL; LYMPH % 8.6 % (9.0-44.0); LYMPHOCYTE # 0.7 TH/MM3 (1.0-4.8); MEAN CELL VOLUME 87.8 FL (80.0-100.0); MEAN CORPUSCULAR HEMOGLOBIN 30.5 PG (27.0-34.0); MEAN CORPUSCULAR HGB CONC 34.7 % (32.0-36.0); MONO % 8.5 % (0.0-8.0); NEUT % 80.9 % (16.0-70.0); PLATELET COUNT 123 TH/MM3 (150-450); RED BLOOD COUNT 4.55 MIL/MM3 (4.50-5.90); RED CELL DISTRIBUTION WIDTH 11.7 % (11.6-17.2); WHITE BLOOD COUNT 8.6 TH/MM3 (4.0-11.0)
[2017-03-24 04:45] LABS: CHLORIDE 104 MEQ/L (98-107); POTASSIUM 3.5 MEQ/L (3.5-5.1); SODIUM (NA) 135 MEQ/L (136-145)
[2017-03-24] MEDS ORDERED: VANCOMYCIN INJ 1,250 MG in SODIUM CHLOR 0.9% 250 ML INJ 250 ML IV SCH (05:00)
[2017-03-24 05:03] LABS: ALKALINE PHOSPHATASE 61 U/L (45-117); ALT (GPT) 12 U/L (12-78); ANION GAP 12 MEQ/L (5-15); AST (GOT) 6 U/L (15-37); BICARBONATE 18.6 MEQ/L (21.0-32.0); BLOOD UREA NITROGEN 18 MG/DL (7-18); GLOMERULAR FILTRATION RATE 60 ML/MIN (>89); MAGNESIUM 2.8 MG/DL (1.5-2.5); TOTAL BILIRUBIN ADULT 0.7 MG/DL (0.2-1.0)
--- NOTE | 2017-03-24 06:21 | HHI.CCPN ---
Subjective Remarks/Hospital Course 41-year-old male. Date of admission 03/23/2017. Past medical history includes undiagnosed diabetes. Patient was recently on a camping trip [facility] Patient was in his normal state of health until Saturday when experiencing intractable nausea and vomiting. No diarrhea. No hematemesis or coffee ground emesis. Initially treated at urgent care with Levsin and Zofran. Symptoms persisted percent to [facility]. CT head revealed possible 4 mm colloid cyst at left foramen of Antony. Chest x-ray unremarkable. Was noted to be hyponatremic, hypokalemic, leukocytosis with elevated bands with an elevated blood sugar and elevated beta hydroxybutyrate. Was given 2 L normal saline. 8 units IV insulin in the ED initiated on DKA protocol protocol. A left femoral central line placed by ED physician. Subjective 03/24: Mental status much improved this AM. Anion gap is closed. Did not initiate tube feeding secondary to esophageal's edema GI will assess today. On insulin drip at 2 units an hour. Continues to have raspy voice. Objective Vital Signs Date Time Temp Pulse Resp B/P Pulse Ox O2 Delivery O2 Flow Rate FiO2 03/24/17 05:01 92 20 98/62 97 03/24/17 04:01 98.5 03/23/17 08:00 21 03/23/17 05:00 Room Air Intake and Output 03/23/17 03/23/17 03/24/17 08:00 16:00 00:00 Intake Total 3100 ml 2575 ml 1655 ml Output Total 2450 ml 1825 ml 1900 ml Balance 650 ml 750 ml -245 ml Result Diagram: 03/24/17 0353 03/24/17 0353 Other Results Microbiology Date/Time Procedure Status Source Growth 03/23/17 02:34 Urine Culture Received Urine Catheterized Urine Pending 03/23/17 00:50 Aerobic Blood Culture Received Blood Peripheral Pending 03/23/17 00:50 Anaerobic Blood Culture Received Blood Peripheral Pending Imaging Last Impressions Head CT 03/23/17 0041 Signed Impressions: Service Date/Time: Thursday, March 23, 2017 04:32 - CONCLUSION: 4 mm hyperdense lesion adjacent to left foramen of Antony could be a colloid cyst without evidence of ventricular enlargement. Non-emergent brain MRI is recommended to confirm. Gregory Thomason MD Chest X-Ray 03/23/17 0041 Signed Impressions: Service Date/Time: Thursday, March 23, 2017 01:51 - CONCLUSION: Normal examination. Gregory Thomason MD Abdomen CT 03/23/17 0000 Signed Impressions: Service Date/Time: Thursday, March 23, 2017 11:11 - CONCLUSION: 1. Examination quality degraded by motion artifact. However, no pancreas abnormality is identified. 2. The only abnormality seen is a small hiatal hernia with severe wall thickening of the distal esophagus versus distal esophageal mass. Colten Arce MD Objective Remarks GENERAL: 40-year-old male, critically ill currently resting in bed in no acute distress SKIN: Warm and dry. Multiple tattoos bilateral upper extremity's. Multiple scabs well-healed bilateral lower extremities HEAD: Atraumatic. Normocephalic. EYES: Pupils equal and round around 3 mm bilaterally and reactive. No scleral icterus. No injection or drainage. ENT: No nasal bleeding or discharge. Mucous membranes pink and light. Oropharynx without erythema. NECK: Trachea midline. No JVD. CARDIOVASCULAR: Tachycardic, RR. S1, S2. No S4 without murmur RESPIRATORY: No accessory muscle use. Clear to auscultation. Breath sounds equal bilaterally. GASTROINTESTINAL: Abdomen soft, currently nontender to palpation. Hypoactive bowel sounds MUSCULOSKELETAL: Extremities without significant peripheral edema. No obvious deformities. NEUROLOGICAL: Awake and alert. No obvious cranial nerve deficits. Motor grossly within normal limits. Five out of 5 muscle strength in the arms and legs. Raspy speech. Vascular Central Line Catheter: Yes Assessment to: Continue Date of Insertion: March 22, 2017 Line: Central Venous Catheter Side: Right Location: Femoral A/P Assessment and Plan Neuro/Psych: Acute toxic metabolic encephalopathy 4 mm lesion at left foramen of Antony Encephalopathy likely secondary to metabolic derangement. CT head 03/19 revealed a 4 mm lesion at the left frontal neuro. Possible colloid cyst. Nonemergent MRI brain recommended Acetaminophen for fever Ralph/morphine as needed for pain management CV: Severe sepsis Hypovolemic shock Lactic acidosis Status post 2 L normal saline ED. Currently on D5 1 quarter normal saline with 10 mEq KCl at season hour Lactic acid has cleared. Currently not requiring vasopressors and/or antihypertensives. RESP: Acute respiratory insufficiency secondary to metabolic arrangement - resolved Nasal cannula to maintain saturations greater than or equal to 92% Incentive spirometry while awake Chest x-ray revealed no acute cardio pulmonary findings GI: Nausea/vomiting - intractable Hyperammonia - resolved Lower esophageal inflammation versus mass Mild pancreatitis Currently nothing by mouth due to esophageal edema likely secondary to protracted nausea and vomiting Zofran 4 mg every 6 hours as needed for nausea CT abdomen/pelvis revealed distal esophageal swelling/inflammation versus mass. She has been consulted routine recommendations Amylase and lipase today repeat Liver function tests within normal limits Lactulose daily. Follow-up ammonia level in a.m. was 12. On lactulose 30 cc daily bowel regimen. Protonix 40 mg IV daily for GI prophylaxis Falcon if needed for accurate I's and O's in a critically ill patient ID Viral etiology needs to be ruled out. No current indication for lumbar puncture at this time. No meningeal signs. Zofran/vancomycin day #2 - we'll discontinue today Pertinent cultures 03/23 - blood cultures 2 -pending 03/23 - UA - pending Influenza ordered RENAL: Acute kidney injury - likely prerenal - resolving CT abdomen/pelvis 03/23 did not reveal hydronephrosis Urine eosinophils negative. Serial BMPs monitor for improved creatinine Accurate I's and O's Monitor urine output HEME: Leukocytosis - bandemia - resolving Polycythemia - likely secondary to dehydration - resolved Elevated PTT Monitor CBC daily. Follow trends Repeat PTT in a.m. Doubt factor deficiency ENDO DKA Status post 2 L normal saline in the ED. Received 8 units insulin IV 1. Insulin drip resumed currently at 2 units an hour BMP, mag, phosphorus at 1400 hrs. today Hemoglobin A1c and lipids ordered FEN Hyponatremia - Hypokalemia Hypermagnesium Hypophosphatemia 30 mmol sodium phosphate 1 now. Recheck this afternoon Replace electrolytes per DKA protocol MSK PT evaluate and treat Access - Utilize left femoral TLC placed 03/23 by ED physician Prophylaxis - GI - Protonix - DVT - SCD/heparin subcutaneous Critical Care: The total care time was 35 minutes. Time to perform other separately billable procedures was not included in the critical care time. Ravi Rosario MD March 24, 2017 06:21
[2017-03-24] MEDS ORDERED: SODIUM PHOSPHATE INJ 30 MMOL in SODIUM CHLOR 0.9% 250 ML INJ 250 ML IV ONE ×2 (07:00→15:30)
[2017-03-24] MEDS: PANTOPRAZOLE SODIUM 40 MG VIAL IV SCH (09:28)
[2017-03-24] MEDS: THIAMINE INJ 100 MG in SODIUM CHLORIDE 0.9% INJ 100 ML IV SCH (09:29)
[2017-03-24] MEDS: DOCUSATE SODIUM 50 MG/SENNA 8.6 MG TAB PO SCH ×2 (09:30→21:00)
[2017-03-24] MEDS: POTASSIUM CHLOR 20 MEQ PREMIX 100 ML IV PRN (09:30)
[2017-03-24] MEDS: LACTULOSE SYRUP 20 GM/30 ML CUP PO SCH (09:30)
[2017-03-24] MEDS: SODIUM CHLORIDE 0.9% FLUSH 10 ML FLUSH IV FLUSH SCH ×2 (09:31→21:00)
--- NOTE | 2017-03-24 10:01 | MB ---
cc: EAGLE EGAN MD DATE OF CONSULTATION: 03/24/2017 REASON FOR CONSULTATION: Intractable nausea and vomiting. HISTORY OF PRESENT ILLNESS A 41-year-old male patient who was admitted yesterday with intractable nausea and vomiting that started several days before the admission with past medical history of undiagnosed diabetes. The patient denies any abdominal pain associated with nausea or vomiting, denies any diarrhea. No hematemesis or coffee-ground material. He was initially treated in the emergency room with Levsin and Zofran. Symptoms persisted afterwards and was admitted for further evaluation. On this admission the patient was noted to have metabolic derangement in the form of hyponatremia, hypokalemia, leukocytosis with bandemia, elevated blood sugar and ketones. The patient was treated in the emergency room as a case of diabetic ketoacidosis. Part of the evaluation the patient had a CT scan of the abdomen that showed a small hiatal hernia and severe wall thickening at the distal esophagus, with the possibility of distal esophageal mass. Also during the evaluation the patient was found to have increased amylase and lipase but his CT scan was negative for pancreatitis. GI was consulted for further evaluation of the esophageal mass and pancreatitis. At the current time, the patient is lethargic, slightly confused and unable to obtain proper history from him, dosing off during the interview. No nausea or vomiting since admission. His metabolic derangement improved significantly. The patient denies any specific symptoms. REVIEW OF SYSTEMS: All 14 point review of systems negative except for the ones mentioned in the history of present illness. PAST MEDICAL HISTORY: 1. Diabetes mellitus. 2. Left leg surgery. ALLERGIES NO KNOWN DRUG ALLERGIES. MEDICATIONS None. FAMILY HISTORY Noncontributory. SOCIAL HISTORY The patient denies smoking. No history of alcohol use or abuse. PHYSICAL EXAMINATION: At the current time the patient appears to be comfortable, slightly lethargic, oriented, hemodynamically stable with vital signs of pulse of 92, respiratory rate of 20, blood pressure 120/70, pulse oximetry of 93. HEAD AND NECK: Examination normocephalic, atraumatic. Pupils equal and reactive to light. Supple neck. No lymphadenopathy. No thyromegaly. CHEST: Clear to auscultation bilaterally. No crackles or wheezes. HEART: Regular rate and rhythm. No murmurs. ABDOMEN: Soft, nontender. No hepatosplenomegaly. No palpable masses. EXTREMITIES: Normal pulses, no edema. NEUROLOGIC: Difficult to assess at the current time. No focal motor or sensory deficit. Cranial nerves grossly intact. SKIN: No lesions or rashes. LABORATORY DATA White count 8.6 today down from 23.5, hemoglobin 13.9 down from 19.1, hematocrit 39.9 down from 57, platelet count of 123. Electrolytes showed sodium of 135, potassium 35, bicarb of 18.6, creatinine 1.3. ALT/AST within normal limits. Alkaline phosphatase 61. Amylase 150, lipase 1500. ASSESSMENT/PLAN A 41-year-old male patient who presents with the following problems: 1. Intractable nausea and vomiting with new-onset diabetes and diabetic ketoacidosis. 2. Abnormal CT scan showing evidence of thickness of the lower esophagus suggestive of possible lesion or edema at the lower esophagus. 3. Increase in amylase, lipase suggestive of acute pancreatitis. 4. Severe dehydration with a drop in hemoglobin from baseline with hydration. 5. Increased ammonia level with confusion episodes in a patient not known to have chronic liver disease. RECOMMENDATIONS 1. Continue supportive care and correction of his metabolic derangement and dehydration, and treatment for DKA. 2. Will proceed with upper endoscopy once the patient is stable. 3. Antiemetic with Zofran. 4. IV proton pump inhibitor. 5. Complete bowel rest and daily amylase and lipase. 6. Supportive care. Will follow up with you. Thank you for the consultation. Eagle MUÑOZ /9:00 AM /9:48 AM YESSY
[2017-03-24] MEDS ORDERED: GADODIAMIDE PF 287 MG/ML 20 ML VIAL (for RAD MRI) IV ONE (11:05)
--- NOTE | 2017-03-24 11:41 | RADHPO ---
EXAM DATE/TIME: 03/24/2017 10:58 [facility] COMPARISON: CT BRAIN W/O CONTRAST, March 23, 2017, 4:32. INDICATIONS : Vomiting. Abnormal CT. CONTRAST: 15 cc Omniscan (gadodiamide) IV MEDICAL HISTORY : Diabetes mellitus type 2. SURGICAL HISTORY : None. ENCOUNTER: Initial ACUITY: 1 day PAIN SCORE: 0/10 LOCATION: cranial TECHNIQUE: Multiplanar, multisequence MRI of the brain was performed both prior to and following the administrat ion of paramagnetic contrast. FINDINGS: CEREBRUM: The ventricles are normal. No evidence of midline shift, mass lesion, hemorrhage or acute infarction . No extraaxial fluid collections are seen. The pituitary gland and suprasellar cistern are normal in configuration. WHITE MATTER: No significant signal abnormalities are seen in the white matter. POSTERIOR FOSSA: The cerebellum and brainstem demonstrate no acute finding. The 4th ventricle is midline. The cerebel lopontine angle is unremarkable. The cerebellar tonsils are normal in position. DIFFUSION IMAGING: No focal areas of restricted diffusion are seen. No evidence of acute infarction. EXTRACRANIAL: The visualized portions of the orbits and paranasal sinuses are unremarkable. POST-CONTRAST: No abnormal areas of parenchymal or dural enhancement. No evidence of blood-brain barrier breakdown. CONCLUSION: 1. The 4 mm hyperdense area at the foramen of Antony documented on recent noncontrast head CT is not visible on this examination. The concern is for a small colloid cyst. If these lesions are small they can be very difficult if not impossible to visualize on MRI. There is no associated ventriculomegaly . I cannot completely exclude that the CT finding represents a very small colloid cyst. 2. Remainder of the examination is within normal limits. Colten Arce MD on March 24, 2017 at 11:31 Board Certified Radiologist. This report was verified electronically.
[2017-03-24 12:43] LABS: HEMOGLOBIN A1a 1.3 %; HEMOGLOBIN Ao 77.1 %; HEMOGLOBIN F 1.6 %; HEMOGLOBIN LA1C 2.4 %; HEMOGLOBIN P3 5.2 %
[2017-03-24] MEDS: D5-1/2 NS + KCL 20 MEQ INJ 1,000 ML IV SCH ×2 (13:14→21:58)
[2017-03-24 15:01] LABS: POTASSIUM 3.7 MEQ/L (3.5-5.1)
[2017-03-24 15:04] LABS: BICARBONATE 14.2 MEQ/L (21.0-32.0); MAGNESIUM 2.6 MG/DL (1.5-2.5)
[2017-03-24 15:28] LABS: BETA-HYDROXYBUTYRATE 5.68 MMOL/L (0.00-0.39)
[2017-03-24] MEDS ORDERED: POTASSIUM CHLOR 20 MEQ PREMIX 100 ML IV ONE (15:30)
[2017-03-24 19:55] LABS: HDL CHOLESTEROL 51.8 MG/DL (40.0-60.0)
[2017-03-24] MEDS: PIPERACIL-TAZO 4.5 GM PREMIX 100 ML IV SCH (21:57)
[2017-03-24] MEDS: D5-1/2 NS + KCL 10 MEQ INJ 1,000 ML IV SCH (22:53)
[2017-03-25] VITALS (24 sets, daily range): BP systolic 98–117; BP diastolic 53–66; PULSE 92–104; RESP 21–28; TEMP 98.3–99.5; O2SAT 92–97
[2017-03-25 00:15] LABS: POTASSIUM 3.4 MEQ/L (3.5-5.1)
[2017-03-25 00:18] LABS: BICARBONATE 18.8 MEQ/L (21.0-32.0)
[2017-03-25] MEDS: POTASSIUM CHLOR 20 MEQ PREMIX 100 ML IV PRN (01:39)
[2017-03-25] MEDS: HEPARIN SODIUM - SQ 10,000 UNITS/ML VIAL SQ SCH ×2 (01:40→15:08)
[2017-03-25] MEDS: CHLORHEXIDINE GLUCONATE 2 % 1 PACK (2 CLOTHS) TOP SCH (04:00)
[2017-03-25] MEDS: D5-1/2 NS + KCL 10 MEQ INJ 1,000 ML IV SCH ×3 (04:15→20:15)
[2017-03-25 04:36] LABS: CHLORIDE 105 MEQ/L (98-107); POTASSIUM 3.6 MEQ/L (3.5-5.1); SODIUM (NA) 136 MEQ/L (136-145)
[2017-03-25 04:41] LABS: ANION GAP 13 MEQ/L (5-15); BICARBONATE 18.3 MEQ/L (21.0-32.0); BLOOD UREA NITROGEN 8 MG/DL (7-18); MAGNESIUM 2.5 MG/DL (1.5-2.5)
[2017-03-25 04:43] LABS: ALT (GPT) 11 U/L (12-78); AST (GOT) 8 U/L (15-37); GLOMERULAR FILTRATION RATE 82 ML/MIN (>89)
[2017-03-25 04:44] LABS: TOTAL BILIRUBIN ADULT 0.8 MG/DL (0.2-1.0)
[2017-03-25] MEDS: PIPERACIL-TAZO 4.5 GM PREMIX 100 ML IV SCH ×4 (04:45→22:04)
[2017-03-25 04:46] LABS: ALKALINE PHOSPHATASE 59 U/L (45-117)
[2017-03-25 04:47] LABS: CREATINE KINASE 28 U/L (39-308)
[2017-03-25 06:26] LABS: AUTOMATED NEUTROPHIL # 7.5 TH/MM3 (1.8-7.7); BASOPHIL % 0.4 % (0.0-2.0); EOSINOPHIL % 0.2 % (0.0-4.0); LYMPH % 7.3 % (9.0-44.0); LYMPHOCYTE # 0.7 TH/MM3 (1.0-4.8); MEAN CELL VOLUME 87.7 FL (80.0-100.0); MEAN CORPUSCULAR HEMOGLOBIN 29.3 PG (27.0-34.0); MEAN CORPUSCULAR HGB CONC 33.3 % (32.0-36.0); MONO % 10.9 % (0.0-8.0); NEUT % 81.2 % (16.0-70.0); PLATELET COUNT 139 TH/MM3 (150-450); RED BLOOD COUNT 4.56 MIL/MM3 (4.50-5.90); RED CELL DISTRIBUTION WIDTH 12.2 % (11.6-17.2); WHITE BLOOD COUNT 9.2 TH/MM3 (4.0-11.0)
[2017-03-25 06:33] LABS: HEMO FLAGS AUTO DIFF
[2017-03-25] MEDS ORDERED: DC Insulin drip 2 hrs post basal insulin dose ONE (06:45)
[2017-03-25] MEDS ORDERED: DEXTROSE 50% IN WATER 50 ML VIAL(D50) IV PRN (06:45)
[2017-03-25] MEDS ORDERED: GLUCAGON 1 MG/ML VIAL OTHER PRN (06:45)
[2017-03-25] MEDS ORDERED: DC previous DKA orders (HMC 1917) ONE (06:45)
[2017-03-25] MEDS ORDERED: INSULIN REGULAR (IV INFUSION) 100 UNITS in SODIUM CHLORIDE 0.9% INJ 99 ML IV SCH (07:00)
[2017-03-25 07:06] LABS: BANDS 19 % (0-6); DOHLE BODIES PRESENT (NONE SEEN); NEUTROPHIL # MANUAL DIFF 7.5 TH/MM3 (1.8-7.7); PLATELET ESTIMATE SMEAR LOW (NORMAL); PLATELET MORPHOLOGY NORMAL (NORMAL); POLYS (SEG NEUTROPHILS) 62 % (16-70); SCAN/DIFF FINAL DIFF MANUAL; WBC DIFF SAMPLE 100
--- NOTE | 2017-03-25 07:09 | PD.TRANSFR ---
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 Date of admission 03/23/2017. Past medical history includes undiagnosed diabetes. Patient was recently on a camping trip [facility] Patient was in his normal state of health until Saturday when experiencing intractable nausea and vomiting. No diarrhea. No hematemesis or coffee ground emesis. Initially treated at urgent care with Levsin and Zofran. Symptoms persisted percent to [facility]. CT head revealed possible 4 mm colloid cyst at left foramen of Antony. Chest x-ray unremarkable. Was noted to be hyponatremic, hypokalemic, leukocytosis with elevated bands with an elevated blood sugar and elevated beta hydroxybutyrate. Was given 2 L normal saline. 8 units IV insulin in the ED initiated on DKA protocol protocol. A left femoral central line placed by ED physician. Subjective 03/24: Mental status much improved this AM. Anion gap is closed. Did not initiate tube feeding secondary to esophageal's edema GI will assess today. On insulin drip at 2 units an hour. Continues to have raspy voice. 03/25: Awake and alert, resting in bed comfortably. Raspy voice persists. States that he feels much better. Denies any nausea or vomiting. Denies any abdominal pain. Currently is NPO following GI eval or deciding regarding EGD. Insulin drip held and being started on Levemir as his anion gap is corrected. Continuing D5 1/2NS at 125 cc per hour as he is currently nothing by mouth pending GI clearance Objective Vital Signs Date Time Temp Pulse Resp B/P Pulse Ox O2 Delivery O2 Flow Rate FiO2 03/25/17 06:15 98 27 97 03/25/17 06:00 98.7 117/66 03/24/17 21:34 Nasal Cannula 2.00 03/23/17 08:00 21 Intake and Output 03/24/17 03/24/17 03/25/17 08:00 16:00 00:00 Intake Total 1595 ml 0 ml 900 ml Output Total 700 ml 1500 ml 700 ml Balance 895 ml -1500 ml 200 ml Result Diagram: 03/25/17 0520 03/25/17 0300 Imaging Last Impressions Head CT 03/23/17 004 Signed Impressions: Service Date/Time: Thursday, March 23, 2017 04:32 - CONCLUSION: 4 mm hyperdense lesion adjacent to left foramen of Antony could be a colloid cyst without evidence of ventricular enlargement. Non-emergent brain MRI is recommended to confirm. Gregory Thomason MD Chest X-Ray 03/23/17 004 Signed Impressions: Service Date/Time: Thursday, March 23, 2017 01:51 - CONCLUSION: Normal examination. Gregory Thomason MD Abdomen CT 03/23/17 0000 Signed Impressions: Service Date/Time: Thursday, March 23, 2017 11:11 - CONCLUSION: 1. Examination quality degraded by motion artifact. However, no pancreas abnormality is identified. 2. The only abnormality seen is a small hiatal hernia with severe wall thickening of the distal esophagus versus distal esophageal mass. Colten Arce MD Objective Remarks GENERAL: 40-year-old male, critically ill currently resting in bed in no acute distress SKIN: Warm and dry. Multiple tattoos bilateral upper extremity's. Multiple scabs well-healed bilateral lower extremities HEAD: Atraumatic. Normocephalic. EYES: Pupils equal and round around 3 mm bilaterally and reactive. No scleral icterus. No injection or drainage. ENT: No nasal bleeding or discharge. Mucous membranes pink and light. Oropharynx without erythema. NECK: Trachea midline. No JVD. CARDIOVASCULAR: Tachycardic, RR. S1, S2. No S4 without murmur RESPIRATORY: No accessory muscle use. Clear to auscultation. Breath sounds equal bilaterally. GASTROINTESTINAL: Abdomen soft, currently nontender to palpation. Hypoactive bowel sounds MUSCULOSKELETAL: Extremities without significant peripheral edema. No obvious deformities. NEUROLOGICAL: Awake and alert. No obvious cranial nerve deficits. Motor grossly within normal limits. Five out of 5 muscle strength in the arms and legs. Raspy speech. Vascular Central Line Catheter: Yes Assessment to: Remove Date of Insertion: March 22, 2017 Line: Central Venous Catheter Side: Right Location: Femoral A/P Assessment and Plan Neuro/Psych: Acute toxic metabolic encephalopathy 4 mm lesion at left foramen of Antony Encephalopathy likely secondary to metabolic derangement. CT head 03/19 revealed a 4 mm lesion a leftt foramen of Morales. Possible colloid cyst. Nonemergent MRI brain recommended Acetaminophen for fever [place]/morphine as needed for pain management CV: Severe sepsis Hypovolemic shock Lactic acidosis Status post 2 L normal saline ED. Currently on D5 1/2normal saline with 10 mEq KCl at 125cc/hr Lactic acid has cleared. Currently not requiring vasopressors and/or antihypertensives. RESP: Acute respiratory insufficiency secondary to metabolic arrangement - resolved Nasal cannula to maintain saturations greater than or equal to 92% Incentive spirometry while awake Chest x-ray revealed no acute cardio pulmonary findings GI: Nausea/vomiting - intractable Hyperammonia - resolved Lower esophageal inflammation versus mass Mild pancreatitis Currently nothing by mouth due to esophageal edema likely secondary to protracted nausea and vomiting Zofran 4 mg every 6 hours as needed for nausea CT abdomen/pelvis revealed distal esophageal swelling/inflammation versus mass. GI consult noted - recommended nothing by mouth and planning on EGD. Amylase and lipase normalized Liver function tests within normal limits Lactulose daily. On lactulose 30 cc daily bowel regimen. Protonix 40 mg IV daily for GI prophylaxis Falcon if needed for accurate I's and O's in a critically ill patient ID Viral etiology needs to be ruled out. No current indication for lumbar puncture at this time. No meningeal signs. vancomycin day -discontinued on 03/24. Remains on Zosyn for empiric antibiotic coverage Pertinent cultures 03/23 - blood cultures 2 -negative 03/23 - UA - no growth Sputum cultures pending Influenza ordered RENAL: Acute kidney injury - likely prerenal - resolving CT abdomen/pelvis 03/23 did not reveal hydronephrosis Urine eosinophils negative. Strict intake output, monitor and replete electro lites, follow BUN/creatinine. Continue IV hydration HEME: Leukocytosis - bandemia - resolving Polycythemia - likely secondary to dehydration - resolved Elevated PTT Monitor CBC daily. Follow trends Repeat PTT in a.m. Doubt factor deficiency ENDO DKA Status post 2 L normal saline in the ED. Received 8 units insulin IV 1. Anion gap is corrected. Insulin drip was at 2 units an hour - currently held due to low blood glucose. We will initiate Levemir 10 units subcutaneously every 12 hourly and sliding scale insulin. Continue D5 half and is at 125 cc per hour while patient is NPO and eventually once cleared by GI, transition to 1800 ADA diet Hemoglobin A1c and lipids ordered. Diabetic education FEN Hyponatremia - Hypokalemia Hypermagnesium Hypophosphatemia Monitor and replete electrolytes. MSK PT evaluate and treat Access - Utilize left femoral TLC placed 03/23 by ED physician - will place peripheral IVs and discontinue femoral central line on 03/25. Prophylaxis - GI - Protonix - DVT - SCD/heparin subcutaneous Consult and transfer to hospitalist service. Critical care will sign off. please reconsult if needed. Atul Cooley MD March 25, 2017 07:09
[2017-03-25] MEDS ORDERED: POTASSIUM CHLOR 40 MEQ PREMIX 100 ML IV ONE (07:15)
[2017-03-25] MEDS: SODIUM CHLORIDE 0.9% FLUSH 10 ML FLUSH IV FLUSH SCH ×2 (09:00→20:41)
[2017-03-25] MEDS: LACTULOSE SYRUP 20 GM/30 ML CUP PO SCH (09:00)
--- NOTE | 2017-03-25 09:33 | HHI.GIFU ---
Subjective Remarks No more vomiting since admission and still NPO. Awake and more alert Objective Vitals I&O Vital Signs Date Time Temp Pulse Resp B/P Pulse Ox O2 Delivery O2 Flow Rate FiO2 03/25/17 08:00 98.3 03/25/17 06:19 98 27 97 03/25/17 06:15 98 27 97 03/25/17 06:00 98.7 96 28 117/66 96 03/25/17 06:00 96 03/25/17 04:00 98 03/25/17 04:00 98 27 114/66 95 03/25/17 02:00 94 03/25/17 02:00 94 24 106/55 95 03/25/17 01:00 96 22 101/63 95 03/25/17 00:00 99.2 98 21 106/63 92 03/25/17 00:00 98 03/24/17 23:00 100 25 106/72 91 03/24/17 22:00 100 21 113/61 94 03/24/17 22:00 100 03/24/17 21:34 94 Nasal Cannula 2.00 03/24/17 21:00 108 28 113/62 91 03/24/17 20:00 98.8 104 26 119/64 91 03/24/17 20:00 104 03/24/17 16:00 98.7 100 22 110/69 93 03/24/17 14:00 94 03/24/17 11:00 97 Nasal Cannula 4.00 I/O 03/24/17 03/24/17 03/24/17 03/25/17 03/25/17 03/25/17 07:00 15:00 23:00 07:00 15:00 23:00 Intake Total 1595 ml 0 ml 900 ml 800 ml Output Total 700 ml 1500 ml 700 ml 1300 ml Balance 895 ml -1500 ml 200 ml -500 ml Intake Oral 0 ml IV Total 1595 ml 900 ml 800 ml Output Urine Total 700 ml 1500 ml 700 ml 1300 ml Laboratory Laboratory Tests Test 03/24/17 03/24/17 03/25/17 03/25/17 14:30 22:50 03:00 05:20 Sodium Level 134 137 136 Potassium Level 3.7 3.4 3.6 Chloride Level 103 105 105 Carbon Dioxide Level 14.2 18.8 18.3 Anion Gap 17 13 13 Blood Urea Nitrogen 12 7 8 Creatinine 1.00 1.10 1.00 Estimat Glomerular Filtration 82 73 82 Rate Random Glucose 197 185 164 Calcium Level 8.2 8.3 8.5 Phosphorus Level 1.9 1.5 Magnesium Level 2.6 2.5 Triglycerides Level 58 Cholesterol Level 105 LDL Cholesterol 42 HDL Cholesterol 51.8 Cholesterol/HDL Ratio 2.02 B-Hydroxybutyrate 5.68 3.10 Total Bilirubin 0.8 Aspartate Amino Transf 8 (AST/SGOT) Alanine Aminotransferase 11 (ALT/SGPT) Alkaline Phosphatase 59 Total Creatine Kinase 28 Total Protein 6.0 Albumin 2.3 Lipase 120 White Blood Count 9.2 Red Blood Count 4.56 Hemoglobin 13.4 Hematocrit 40.0 Mean Corpuscular Volume 87.7 Mean Corpuscular Hemoglobin 29.3 Mean Corpuscular Hemoglobin 33.3 Concent Red Cell Distribution Width 12.2 Platelet Count 139 Mean Platelet Volume 12.0 Neutrophils (%) (Auto) 81.2 Lymphocytes (%) (Auto) 7.3 Monocytes (%) (Auto) 10.9 Eosinophils (%) (Auto) 0.2 Basophils (%) (Auto) 0.4 Neutrophils # (Auto) 7.5 Lymphocytes # (Auto) 0.7 Monocytes # (Auto) 1.0 Eosinophils # (Auto) 0.0 Basophils # (Auto) 0.0 CBC Comment AUTO DIFF Differential Total Cells 100 Counted Neutrophils % (Manual) 62 Band Neutrophils % 19 Lymphocytes % 7 Monocytes % 12 Neutrophils # (Manual) 7.5 Differential Comment FINAL DIFF MANUAL Dohle Bodies PRESENT Platelet Estimate LOW Platelet Morphology Comment NORMAL Red Cell Morphology Comment NORMAL Date/Time Procedure Status Source Growth 03/24/17 03:00 Gram Stain Received Sputum Expectorated Sputum Pending 03/24/17 03:00 Sputum Culture Received Sputum Expectorated Sputum Pending 03/23/17 02:34 Urine Culture - Final Complete Urine Catheterized Urine NO GROWTH IN 48 HOURS. 03/23/17 00:50 Aerobic Blood Culture - Preliminary Resulted Blood Peripheral NO GROWTH IN 1 DAY 03/23/17 00:50 Anaerobic Blood Culture - Preliminary Resulted Blood Peripheral NO GROWTH IN 1 DAY Physical Exam HEENT: Pupils round and reactive to light; normocephalic; atraumatic; no jaundice. Throat is clear. NECK: Neck is supple, no JVD, no lymphadenopathy. CHEST: Chest is clear to auscultation and percussion. CARDIAC: Regular rate and rhythm with no murmur gallop or rubs. ABDOMEN: Soft, nondistended, nontender; no hepatosplenomegaly; bowel sounds are present in all four quadrants. EXTREMITIES: No clubbing, cyanosis, or edema. SKIN: Normal; no rash; no jaundice. Assessment and Plan Physician Comments 1. Intractable nausea and vomiting with new-onset diabetes and diabetic ketoacidosis. 2. Abnormal CT scan showing evidence of thickness of the lower esophagus suggestive of possible lesion or edema at the lower esophagus. 3. Increase in amylase, lipase suggestive of acute pancreatitis. 4. Severe dehydration with a drop in hemoglobin from baseline with hydration. 5. Increased ammonia level with confusion episodes in a patient not known to have chronic liver disease. RECOMMENDATIONS 1. Continue supportive care and correction of his metabolic derangement and dehydration, and treatment for DKA. 2. Will proceed with upper endoscopy in AM 3. Antiemetic with Zofran. 4. IV proton pump inhibitor. 5. Clear liquid diet for now and NPO after MN 6. Supportive care. Eagle Mary MD March 25, 2017 09:33
[2017-03-25] MEDS: DOCUSATE SODIUM 50 MG/SENNA 8.6 MG TAB PO SCH ×2 (09:58→20:22)
[2017-03-25] MEDS: THIAMINE INJ 100 MG in SODIUM CHLORIDE 0.9% INJ 100 ML IV SCH (09:59)
[2017-03-25] MEDS: PANTOPRAZOLE SODIUM 40 MG VIAL IV SCH (09:59)
[2017-03-25] MEDS: INSULIN DETEMIR 100 UNITS/ML VIAL SQ SCH ×3 (10:07→20:27)
[2017-03-25] MEDS: INSULIN ASPART SUPPLEMENTAL SCALE SQ SCH ×5 (11:35→23:31)
[2017-03-26] VITALS (15 sets, daily range): BP systolic 94–113; BP diastolic 51–75; PULSE 72–94; RESP 16–25; TEMP 97.7–99.7; O2SAT 93–97
[2017-03-26] MEDS: HEPARIN SODIUM - SQ 10,000 UNITS/ML VIAL SQ SCH ×2 (02:15→12:52)
[2017-03-26] MEDS: INSULIN ASPART SUPPLEMENTAL SCALE SQ SCH ×5 (04:00→20:31)
[2017-03-26] MEDS: PIPERACIL-TAZO 4.5 GM PREMIX 100 ML IV SCH ×4 (04:00→20:27)
[2017-03-26] MEDS: CHLORHEXIDINE GLUCONATE 2 % 1 PACK (2 CLOTHS) TOP SCH (04:00)
[2017-03-26] MEDS: D5-1/2 NS + KCL 10 MEQ INJ 1,000 ML IV SCH ×3 (04:15→17:29)
[2017-03-26] MEDS ORDERED: PHARMACY ORDERED LAB ONE (04:45)
--- NOTE | 2017-03-26 08:20 | HHI.PR ---
Subjective Remarks resting comfortably with no distress. denies abdominal pain, nausea or vomiting. awaiting EGD. d/w the RN and no acute issues over night. Objective Vitals Vital Signs Date Time Temp Pulse Resp B/P Pulse Ox O2 Delivery O2 Flow Rate FiO2 03/26/17 06:00 90 03/26/17 06:00 90 22 107/62 97 03/26/17 05:00 88 20 101/63 96 03/26/17 04:00 88 03/26/17 04:00 99.7 88 21 108/64 97 03/26/17 03:00 90 25 106/61 95 03/26/17 02:00 90 03/26/17 02:00 90 22 109/61 97 03/26/17 01:00 94 25 94/64 97 03/26/17 00:00 99.4 92 21 98/61 96 03/26/17 00:00 92 03/25/17 23:00 92 25 101/61 95 03/25/17 22:00 96 03/25/17 22:00 96 22 105/66 94 03/25/17 21:00 104 25 98/53 92 03/25/17 20:00 99.5 94 24 101/61 94 03/25/17 20:00 94 03/25/17 19:48 93 Nasal Cannula 2.00 03/25/17 19:00 96 03/25/17 18:19 96 28 96 03/25/17 18:00 98 03/25/17 16:00 96 03/25/17 15:59 99.0 03/25/17 15:00 96 03/25/17 14:00 92 03/25/17 13:00 96 03/25/17 12:00 98 03/25/17 11:49 99.0 03/25/17 10:00 104 I/O 03/25/17 03/25/17 03/25/17 03/26/17 03/26/17 03/26/17 07:00 15:00 23:00 07:00 15:00 23:00 Intake Total 800 ml 120 ml 1200 ml 1000 ml Output Total 1300 ml 900 ml 2000 ml 900 ml Balance -500 ml -780 ml -800 ml 100 ml Intake Oral 120 ml IV Total 800 ml 1200 ml 1000 ml Output Urine Total 1300 ml 900 ml 2000 ml 900 ml Result Diagram: 03/25/17 0520 03/25/17 0300 Imaging Last Impressions Brain MRI 03/24/17 1000 Signed Impressions: Service Date/Time: Friday, March 24, 2017 10:58 - CONCLUSION: 1. The 4 mm hyperdense area at the foramen of Antony documented on recent noncontrast head CT is not visible on this examination. The concern is for a small colloid cyst. If these lesions are small they can be very difficult if not impossible to visualize on MRI. There is no associated ventriculomegaly. I cannot completely exclude that the CT finding represents a very small colloid cyst. 2. Remainder of the examination is within normal limits. Colten Arce MD Head CT 03/23/17 0041 Signed Impressions: Service Date/Time: Thursday, March 23, 2017 04:32 - CONCLUSION: 4 mm hyperdense lesion adjacent to left foramen of Antony could be a colloid cyst without evidence of ventricular enlargement. Non-emergent brain MRI is recommended to confirm. Gregory Thomason MD Chest X-Ray 03/23/1740 Signed Impressions: Service Date/Time: Thursday, March 23, 2017 01:51 - CONCLUSION: Normal examination. Gregory Thomason MD Abdomen CT 03/23/17 0000 Signed Impressions: Service Date/Time: Thursday, March 23, 2017 11:11 - CONCLUSION: 1. Examination quality degraded by motion artifact. However, no pancreas abnormality is identified. 2. The only abnormality seen is a small hiatal hernia with severe wall thickening of the distal esophagus versus distal esophageal mass. Colten Arce MD Objective Remarks GENERAL: This is a well-nourished, well-developed patient, in no apparent distress. CARDIOVASCULAR: Regular rate and regular rhythm without murmurs, gallops, or rubs. RESPIRATORY: Clear to auscultation. Breath sounds equal bilaterally. No wheezes , rales, or rhonchi. GASTROINTESTINAL: Abdomen soft, non-tender, nondistended. Normal, active bowel sounds MUSCULOSKELETAL: Extremities without clubbing, cyanosis, or edema. NEURO: Alert & Oriented x4 to person, place, time, situation. Moves all ext x4 Medications and IVs Current Medications IV Flush 2 ml 2 ml UNSCH PRN IV FLUSH FLUSH AFTER USING IV ACCESS; Start at 00:45; Stop 03/23/17 at 02:10; Status DC Sodium Chloride 1,000 ml @ 1,000 mls/hr Q1H IV Last administered on 03/23/17 00:55; Start 03/23/17 at 00:41; Stop 03/23/17 at 01:40; Status DC Sodium Chloride (NS 1000 ml Inj) 1,000 ml @ 999 mls/hr BOLUS ONCE IV Last administered on 03/23/17 01:24; Start 03/23/17 at 00:45; Stop 03/23/17 at 01:45 ; Status DC Ondansetron HCl 4 mg 4 mg ONCE ONCE IV PUSH Last administered on 03/23/17 00: 55; Start 03/23/17 at 00:45; Stop 03/23/17 at 00:46; Status DC Sodium Chloride 1,000 ml @ 250 mls/hr Q4H IV Last administered on 03/23/17 07 :56; Start 03/23/17 at 01:18; Stop 03/23/17 at 08:45; Status DC Dextrose/Sodium Chloride (D5W-NS 1000 ml Inj) 1,000 ml @ 200 mls/hr Q5H IV ; Start 03/23/17 at 01:18; Stop 03/23/17 at 12:01; Status DC Insulin Human Regular 8 units 8 units BOLUS ONCE IV PUSH Last administered on 03/23/17 04:15; Start 03/23/17 at 01:30; Stop 03/23/17 at 01:31; Status DC Insulin Human Regular 100 units/ Sodium Chloride 100 ml @ 0 mls/hr TITRATE IV Last administered on 03/23/17 08:52; Start 03/23/17 at 01:30; Stop 03/25/17 at 06:50; Status DC Potassium Chloride 100 ml @ 100 mls/hr Q1H PRN IV SEE LABEL COMMENTS; Start at 01:30; Stop 03/25/17 at 06:52; Status DC Potassium Chloride 100 ml @ 50 mls/hr Q2H PRN IV SEE LABEL COMMENTS Last administered on 03/23/17 07:53; Start 03/23/17 at 01:30; Stop 03/25/17 at 06:52 ; Status DC Potassium Chloride 100 ml @ 100 mls/hr Q1H PRN IV SEE LABEL COMMENTS Last administered on 03/25/17 01:39; Start 03/23/17 at 01:30; Stop 03/25/17 at 06:52 ; Status DC Potassium Chloride 100 ml @ 100 mls/hr Q1H PRN IV SEE LABEL COMMENTS; Start at 01:30; Stop 03/25/17 at 06:52; Status DC Potassium Chloride 100 ml @ 50 mls/hr Q2H PRN IV SEE LABEL COMMENTS; Start at 01:30; Stop 03/25/17 at 06:52; Status DC Potassium Chloride 100 ml @ 50 mls/hr Q2H PRN IV SEE LABEL COMMENTS; Start at 01:30; Stop 03/25/17 at 06:52; Status DC Potassium Chloride 100 ml @ 50 mls/hr Q2H PRN IV SEE LABEL COMMENTS; Start at 01:30; Stop 03/25/17 at 06:52; Status DC Potassium Chloride (KCl 20 Meq Premix Inj) 100 ml @ 50 mls/hr Q2H PRN IV SEE LABEL COMMENTS; Start 03/23/17 at 01:30; Stop 03/25/17 at 06:52; Status DC Sodium Bicarbonate (Sodium Bicarbonate 8.4% Inj) 100 meq UNSCH PRN IV SEE LABEL COMMENTS; Start 03/23/17 at 01:30; Stop 03/25/17 at 06:52; Status DC Sodium Bicarbonate 50 meq 50 meq UNSCH PRN IV SEE LABEL COMMENTS; Start at 01:30; Stop 03/25/17 at 06:52; Status DC Sodium Phosphate 15 mmol/Sodium Chloride 105 ml @ 25 mls/hr UNSCH PRN IV SEE LABEL COMMENTS Last administered on 03/23/17 08:41; Start 03/23/17 at 01:30; Stop 03/25/17 at 06:52; Status DC Piperacillin Sod/ Tazobactam Sod 100 ml @ 200 mls/hr ONCE ONCE IV Last administered on 03/23/17 02:09; Start 03/23/17 at 01:45; Stop 03/23/17 at 02:14 ; Status DC Vancomycin HCl 1000 mg/Sodium Chloride 250 ml @ 250 mls/hr ONCE ONCE IV ; Start 03/23/17 at 01:45; Stop 03/23/17 at 02:44; Status DC Potassium Chloride (KCl 10 Meq Premix Inj) 100 ml @ 100 mls/hr Q1H IV Last administered on 03/23/17 05:45; Start 03/23/17 at 02:00; Stop 03/23/17 at 04:59 ; Status DC Sodium Chloride (NS Flush) 2 ml BID IV FLUSH Last administered on 03/25/17 20: 41; Start 03/23/17 at 09:00 Sodium Chloride 2 ml 2 ml UNSCH PRN IVF FLUSH AFTER USING IV ACCESS; Start at 02:15 Piperacillin Sod/ Tazobactam Sod 50 ml @ 100 mls/hr Q8H IV Last administered on 03/24/17 01:00; Start 03/23/17 at 10:00; Stop 03/24/17 at 06:26; Status DC Pharmacy Profile Note (Vancomycin Consult Pharmacy) 0 ml @ 0 mls/hr UNSCH OTHER ; Start 03/23/17 at 02:15; Stop 03/24/17 at 06:26; Status DC Pantoprazole Sodium (Protonix Inj) 40 mg DAILY IV Last administered on 09:59; Start 03/23/17 at 09:00 Ondansetron HCl (Zofran Inj) 4 mg Q6H PRN IV NAUSEA OR VOMITING Last administered on 03/23/17 07:44; Start 03/23/17 at 02:15 Heparin Sodium (Porcine) (Heparin Inj) 5,000 units Q12H SQ Last administered on 03/25/17 15:08; Start 03/23/17 at 02:15 Miscellaneous Information 1 [id number] XX Last administered on 03/23/17 02:15; Start 03/23/17 at 02:15 Chlorhexidine Gluconate (Chlorhexidine 2% Cloth) 3 pack Taper DAILY@04 TOP Last administered on 03/26/17 04:00; Start 03/23/17 at 04:00; Stop 03/19/18 at 03:59 Chlorhexidine Gluconate (Chlorhexidine 2% Cloth) 3 pack UNSCH PRN TOP HYGIENIC CARE; Start 03/23/17 at 02:15 Senna/Docusate Sodium (Destiny-Colace) 1 tab BID PO Last administered on 20:22; Start 03/23/17 at 09:00 Magnesium Hydroxide (Milk Of Magnesia Liq) 30 ml Q12H PRN PO MILD - MODERATE CONSTIPATION; Start 03/23/17 at 02:15 Sennosides (Senokot) 17.2 mg Q12H PRN PO MODERATE - SEVERE CONSTIPATION; Start 03/23/17 at 02:15 Bisacodyl (Dulcolax Supp) 10 mg DAILY PRN RECTAL SEVERE CONSITIPATION; Start at 02:15 Lactulose (Lactulose Liq) 30 ml DAILY PRN PO SEVERE CONSITIPATION; Start at 02:15 Ondansetron HCl 4 mg 4 mg ONCE ONCE IV PUSH Last administered on 03/23/17 02: 39; Start 03/23/17 at 02:45; Stop 03/23/17 at 02:46; Status DC Vancomycin HCl/ Sodium Chloride (Vancomycin Inj/ NS 250 ml Inj) 262 ml @ 250 mls/hr DAILY@04 IV Last administered on 03/23/17 05:03; Start 03/23/17 at 04: 00; Stop 03/23/17 at 07:00; Status DC Metoclopramide HCl (Reglan Inj) 10 mg UNSCH X1 PRN IV NAUSEA OR VOMITING; Start 03/23/17 at 03:30; Stop 03/23/17 at 04:00; Status DC Metoclopramide HCl 10 mg 10 mg UNSCH X1 PRN IV NAUSEA OR VOMITING Last administered on 03/23/17 03:38; Start 03/23/17 at 03:30; Stop 03/23/17 at 05:00 ; Status DC Sodium Chloride 1,000 ml @ 999 mls/hr BOLUS ONCE IV Last administered on 03/23 01:45; Start 03/23/17 at 04:45; Stop 03/23/17 at 05:45; Status DC Sodium Chloride 1,000 ml @ 250 mls/hr Q4H IV Last administered on 03/23/17 10 :02; Start 03/23/17 at 08:30; Stop 03/23/17 at 12:02; Status DC Calcium Gluconate 1 gm/Sodium Chloride 110 ml @ 110 mls/hr ONCE ONCE IV Last administered on 03/23/17 12:57; Start 03/23/17 at 10:00; Stop 03/23/17 at 10:59 ; Status DC Thiamine HCl/ Sodium Chloride (Thiamine Inj/NS Inj) 101 ml @ 101 mls/hr DAILY IV Last administered on 03/25/17 09:59; Start 03/23/17 at 10:00 Acetaminophen (Tylenol) 650 mg Q6H PRN PO PAIN 1-10 AND/OR FEVER >101F; Start 03/23/17 at 09:00 Acetaminophen/ Hydrocodone Bitart ([place] 5-325 Mg) 1 tab Q4H PRN PO PAIN SCALE 1 TO 5; Start 03/23/17 at 09:00 Morphine Sulfate (Morphine Inj) 2 mg Q2H PRN IV PAIN SCALE 6 TO 10; Start 03/23 at 09:00 Lactulose (Lactulose Liq) 30 ml DAILY PO Last administered on 03/24/17 09:30; Start 03/23/17 at 09:00 Sodium Bicarbonate 100 meq 100 meq ONCE ONCE IV PUSH Last administered on 03/23 12:13; Start 03/23/17 at 11:00; Stop 03/23/17 at 11:01; Status DC Vancomycin HCl/ Sodium Chloride (Vancomycin Inj/ NS 250 ml Inj) 262.5 ml @ 250 mls/hr Q24H IV Last administered on 03/24/17 04:31; Start 03/24/17 at 05:00; Stop 03/24/17 at 06:27; Status DC Miscellaneous Information SPECIFIC LAB TO BE DRAWN:VANCOMYCIN TROUGH DATE TO... ONCE ONCE .XX ; Start 03/26/17 at 04:45; Stop 03/26/17 at 04:46; Status DC Dextrose/Sodium Chloride 1,000 ml @ 200 mls/hr Q5H IV Last administered on 13:00; Start 03/23/17 at 14:00; Stop 03/23/17 at 15:33; Status DC Potassium Chloride 30 meq/ Sodium Chloride 115 ml @ 38.333 mls/ hr ONCE ONCE IV-CENTRAL Last administered on 03/23/17 17:26; Start 03/23/17 at 17:00; Stop 03/23/17 at 19:59; Status DC Sodium Phosphate 30 mmol/Sodium Chloride 260 ml @ 43.333 mls/ hr ONCE ONCE IV Last administered on 03/23/17 17:26; Start 03/23/17 at 17:00; Stop 03/23/17 at 22:59; Status DC Potassium Chloride 10 meq/ Dextrose/Sodium Chloride 1,005 ml @ 150 mls/hr Q6H42M IV ; Start 03/23/17 at 15:30; Stop 03/23/17 at 16:03; Status DC Sodium Chloride 56 meq/Potassium Chloride 10 meq/ Dextrose 1,019 ml @ 150 mls/ hr Q6H48M IV Last administered on 03/23/17 17:26; Start 03/23/17 at 17:00; Stop 03/23/17 at 20:09; Status DC Potassium Chloride 100 ml @ 25 mls/hr Q4H IV Last administered on 03/23/17 22 :59; Start 03/23/17 at 20:00; Stop 03/24/17 at 03:59; Status DC Sodium Phosphate 30 mmol/Sodium Chloride 260 ml @ 43.333 mls/ hr ONCE ONCE IV Last administered on 03/23/17 21:13; Start 03/23/17 at 23:00; Stop 03/24/17 at 04:59; Status DC Potassium Chloride 10 meq/ Dextrose/Sodium Chloride 1,005 ml @ 150 mls/hr Q6H42M IV Last administered on 03/24/17 03:47; Start 03/23/17 at 21:00; Stop 03/24/17 at 06:27; Status DC Sodium Phosphate/ Sodium Chloride (Sodium Phosphate Inj/NS 250 ml Inj) 260 ml @ 43.333 mls/ hr ONCE ONCE IV Last administered on 03/24/17 09:29; Start at 07:00; Stop 03/24/17 at 12:59; Status DC Gadodiamide 15 ml 15 ml STK-MED ONCE IV Last administered on 03/24/17 11:05; Start 03/24/17 at 11:05; Stop 03/24/17 at 11:06; Status DC Potassium Chloride/Dextrose/ Sod Cl 1,000 ml @ 100 mls/hr Q10H IV Last administered on 03/24/17 21:58; Start 03/24/17 at 12:00; Stop 03/24/17 at 21:58 ; Status DC Sodium Phosphate 30 mmol/Sodium Chloride 260 ml @ 43.333 mls/ hr ONCE ONCE IV ; Start 03/24/17 at 15:30; Stop 03/24/17 at 21:29; Status DC Potassium Chloride 100 ml @ 50 mls/hr BOLUS ONCE IV Last administered on 03/24 15:30; Start 03/24/17 at 15:30; Stop 03/24/17 at 17:29; Status DC Piperacillin Sod/ Tazobactam Sod 100 ml @ 200 mls/hr Q6H IV Last administered on 03/26/17 04:00; Start 03/24/17 at 22:00 Potassium Chloride/Dextrose/ Sod Cl (D5-1/2 NS + KCl 10 Meq Inj) 1,000 ml @ 125 mls/hr Q8H IV Last administered on 03/26/17 04:15; Start 03/24/17 at 22:00 Miscellaneous Information 1 ONCE ONCE .XX ; Start 03/25/17 at 06:45; Stop 03/25 at 06:53; Status DC Miscellaneous Information 1 ONCE ONCE .XX ; Start 03/25/17 at 06:45; Stop 03/25 at 06:53; Status DC Insulin Detemir (Levemir Inj) 10 units Q12HR SQ Last administered on 03/25/17 20:24; Start 03/25/17 at 06:45 Insulin Aspart (NovoLOG SUPPLEMENTAL SCALE) 1 Q4HR SQ Last administered on 03/25 23:31; Start 03/25/17 at 08:00 Dextrose (D50w (Vial) Inj) 50 ml UNSCH PRN IV HYPOGLYCEMIA-SEE COMMENTS; Start 03/25/17 at 06:45 Glucagon 1 mg 1 mg UNSCH PRN OTHER HYPOGLYCEMIA-SEE COMMENTS; Start 03/25/17 at 06:45 Insulin Human Regular 100 units/ Sodium Chloride 100 ml @ 0 mls/hr TITRATE IV ; Start 03/25/17 at 07:00; Stop 03/25/17 at 09:00; Status DC Potassium Chloride (KCl 40 Meq Premix Inj) 100 ml @ 25 mls/hr BOLUS ONCE IV Last administered on 03/25/17 10:00; Start 03/25/17 at 07:15; Stop 03/25/17 at 11:14; Status DC Date of Insertion: March 22, 2017 Line: Central Venous Catheter Side: Right Location: Femoral A/P Assessment and Plan A/P Acute toxic metabolic encephalopathy 4 mm lesion at left foramen of Antony Encephalopathy likely secondary to metabolic derangement. CT head 03/19 revealed a 4 mm lesion a leftt foramen of Morales. Possible colloid cyst-however this was not visible on MRI brain. Acetaminophen for fever [place]/morphine as needed for pain management Severe sepsis Hypovolemic shock Lactic acidosis continue IV fluid Lactic acid has cleared. will deescalate the antibiotic regimen soon if remains stable. Pertinent cultures 03/23 - blood cultures 2 -negative 03/23 - UA - no growth Sputum cultures pending Influenza ordered Acute respiratory insufficiency secondary to metabolic arrangement - resolved Nasal cannula to maintain saturations greater than or equal to 92% Incentive spirometry while awake Chest x-ray revealed no acute cardio pulmonary findings Nausea/vomiting - intractable Hyperammonemia - resolved Lower esophageal inflammation versus mass Mild pancreatitis Currently nothing by mouth due to esophageal edema likely secondary to protracted nausea and vomiting Zofran 4 mg every 6 hours as needed for nausea CT abdomen/pelvis revealed distal esophageal swelling/inflammation versus mass. GI consult noted - recommended nothing by mouth and planning on EGD today. Amylase and lipase normalized Liver function tests within normal limits Lactulose daily. On lactulose 30 cc daily bowel regimen. Protonix 40 mg IV daily for GI prophylaxis RENAL: Acute kidney injury - likely prerenal - resolving CT abdomen/pelvis 03/23 did not reveal hydronephrosis Urine eosinophils negative. Strict intake output- Continue IV hydration Leukocytosis - bandemia - resolving Polycythemia - likely secondary to dehydration - resolved Elevated PTT Monitor CBC daily. Follow trends Repeat PTT in a.m. Doubt factor deficiency DKA Status post 2 L normal saline in the ED. Anion gap is corrected. started on Levemir 10 units subcutaneously every 12 hourly and sliding scale insulin. Continue D5 half and is at 125 cc per hour while patient is NPO and eventually once cleared by GI, transition to 1800 ADA diet Hemoglobin A1c and lipids ordered. Diabetic education Hypophosphatemia- Monitor and replete electrolytes. PT evaluate and treat Prophylaxis - GI - Protonix - DVT - SCD/heparin subcutaneous transfer to telemetry. d/w the RN. Kendra Cope MD March 26, 2017 08:20
[2017-03-26 08:30] LABS: HEMOGLOBIN A1a 1.1 %; HEMOGLOBIN A1b 2.3 %; HEMOGLOBIN Ao 79.1 %; HEMOGLOBIN LA1C 2.2 %
[2017-03-26] MEDS: DOCUSATE SODIUM 50 MG/SENNA 8.6 MG TAB PO SCH ×2 (09:00→20:26)
[2017-03-26] MEDS: INSULIN DETEMIR 100 UNITS/ML VIAL SQ SCH ×2 (09:00→20:30)
[2017-03-26] MEDS: LACTULOSE SYRUP 20 GM/30 ML CUP PO SCH (09:00)
[2017-03-26] MEDS: SODIUM CHLORIDE 0.9% FLUSH 10 ML FLUSH IV FLUSH SCH ×2 (10:27→20:26)
[2017-03-26] MEDS: THIAMINE INJ 100 MG in SODIUM CHLORIDE 0.9% INJ 100 ML IV SCH (10:27)
[2017-03-26] MEDS: PANTOPRAZOLE SODIUM 40 MG VIAL IV SCH (10:33)
--- NOTE | 2017-03-26 13:26 | GIPROC ---
[facility] [address] [place] [address], [id number] EGD PROCEDURE REPORT EXAM DATE: 03/26/2017 PATIENT NAME: Chad Laguna MR #: [id number] BIRTHDATE: 1975 ATTENDING: Lacey Sabillon MD ORDER #: [id number] ONLINE PUBLISHER: Kendrick Gudino and Tracy Mccall STATUS: inpatient INDICATIONS: The patient is a 41 yr old male here for an EGD due to vomiting and nausea PROCEDURE PERFORMED: EGD w/ biopsy MEDICATIONS: None and Per Anesthesia. TOPICAL ANESTHETIC: CONSENT: The patient understands the risks and benefits of the procedure and understands that these risks include, but are not limited to: sedation, allergic reaction, infection, perforation and/or bleeding. Alternative means of evaluation and treatment include, among others: physical exam, x-rays, and/or surgical intervention. The patient elects to proceed with this endoscopic procedure. medical equipment was checked for proper function. Hand hygiene and appropriate measures for infection prevention was taken. After the risks, benefits and alternatives of the procedure were thoroughly explained, Informed consent was verified, confirmed and timeout was successfully executed by the treatment team. The patient was anesthetized with topical anesthesia and the Pentax EG-[id number] endoscope was introduced through the mouth and advanced to the second portion of the duodenum. Retroflexed views revealed no abnormalities The gastroscope was then slowly withdrawn and removed. Sever esophagitis (esophagus with black mucosa in the lower 2/3 Bx done. Gastritis Bx done. The endoscopy was otherwise normal. ADVERSE EVENTS: There were no complications. IMPRESSIONS: 1. Sever esophagitis (esophagus with black mucosa in the lower 2/3 Bx done 2. Gastritis Bx done 3. Normal endoscopy otherwise 4. Retroflexed views revealed no abnormalities RECOMMENDATIONS: 1. Await biopsy results. Biopsy results will not be ready for 7-10 days. If you don't hear from us in two weeks, call our office for biopsy results. 2. Anti-reflux regimen 3. Continue PPI 4. Avoid NSAIDS 5. Diabetic control PATIENT CONDITION: DISPOSITION: Inpatient REPEAT EXAM: Return 2 months EGD Lacey Sabillon MD eSigned: Lacey Sabillon MD 03/26/2017 1:26 PM cc: PATIENT NAME: Chad Laguna MR#: [id number]
--- NOTE | 2017-03-26 13:29 | HHI.GIFU ---
Subjective Remarks feels better, less nausea, no vomiting, still abdominal pain Objective Vitals I&O Vital Signs Date Time Temp Pulse Resp B/P Pulse Ox O2 Delivery O2 Flow Rate FiO2 03/26/17 12:30 98.7 76 16 95/51 97 03/26/17 12:00 98.4 72 21 113/73 96 03/26/17 10:00 86 03/26/17 08:00 99.1 88 22 101/75 97 03/26/17 08:00 88 03/26/17 07:55 95 Nasal Cannula 2.00 03/26/17 06:00 90 03/26/17 06:00 90 22 107/62 97 03/26/17 05:00 88 20 101/63 96 03/26/17 04:00 88 03/26/17 04:00 99.7 88 21 108/64 97 03/26/17 03:00 90 25 106/61 95 03/26/17 02:00 90 03/26/17 02:00 90 22 109/61 97 03/26/17 01:00 94 25 94/64 97 03/26/17 00:00 99.4 92 21 98/61 96 03/26/17 00:00 92 03/25/17 23:00 92 25 101/61 95 03/25/17 22:00 96 03/25/17 22:00 96 22 105/66 94 03/25/17 21:00 104 25 98/53 92 03/25/17 20:00 99.5 94 24 101/61 94 03/25/17 20:00 94 03/25/17 19:48 93 Nasal Cannula 2.00 03/25/17 19:00 96 03/25/17 18:19 96 28 96 03/25/17 18:00 98 03/25/17 16:00 96 03/25/17 15:59 99.0 03/25/17 15:00 96 03/25/17 14:00 92 I/O 03/25/17 03/25/17 03/25/17 03/26/17 03/26/17 03/26/17 07:00 15:00 23:00 07:00 15:00 23:00 Intake Total 800 ml 120 ml 1200 ml 1000 ml Output Total 1300 ml 900 ml 2000 ml 900 ml Balance -500 ml -780 ml -800 ml 100 ml Intake Oral 120 ml IV Total 800 ml 1200 ml 1000 ml Output Urine Total 1300 ml 900 ml 2000 ml 900 ml Laboratory Laboratory Tests Test 03/26/17 04:45 Phosphorus Level 2.0 Vancomycin Level Trough LESS THAN 0.8 Date/Time Procedure Status Source Growth 03/24/17 03:00 Gram Stain - Final Resulted Sputum Expectorated Sputum 03/24/17 03:00 Sputum Culture - Preliminary Resulted Sputum Expectorated Sputum HEAVY GROWTH NORMAL RESPIRATORY CORIN... 03/23/17 02:34 Urine Culture - Final Complete Urine Catheterized Urine NO GROWTH IN 48 HOURS. 03/23/17 00:50 Aerobic Blood Culture - Preliminary Resulted Blood Peripheral NO GROWTH IN 3 DAYS 03/23/17 00:50 Anaerobic Blood Culture - Preliminary Resulted Blood Peripheral NO GROWTH IN 3 DAYS Physical Exam HEENT: Pupils round and reactive to light; normocephalic; atraumatic; no jaundice. Throat is clear. NECK: Neck is supple, no JVD, no lymphadenopathy. CHEST: Chest is clear to auscultation and percussion. CARDIAC: Regular rate and rhythm with no murmur gallop or rubs. ABDOMEN: Soft, nondistended, nontender; no hepatosplenomegaly; bowel sounds are present in all four quadrants. EXTREMITIES: No clubbing, cyanosis, or edema. SKIN: Normal; no rash; no jaundice. Assessment and Plan Plan abdominal pain, nausea vomiting, EGD showed sever gastritis and sever esophagitis (black esophagus) Bx pancreatitis better continue PPI better control DM clear liquid advance slowly EGD in 2 months await Bx Lacey Sabillon MD March 26, 2017 13:28
[2017-03-26] MEDS ORDERED: PROPOFOL 200 MG/20 ML AMP IV ONE (13:56)
[2017-03-26] MEDS ORDERED: POTASSIUM PHOSPHATE/SODIUM PHOSPHATE 250 MG TAB PO ONE (16:00)
[2017-03-27] VITALS (7 sets, daily range): BP systolic 100–115; BP diastolic 66–74; PULSE 76–88; RESP 16–20; TEMP 98.2–99.3; O2SAT 91–96
[2017-03-27] MEDS: D5-1/2 NS + KCL 10 MEQ INJ 1,000 ML IV SCH ×2 (00:13→09:24)
[2017-03-27] MEDS: INSULIN ASPART SUPPLEMENTAL SCALE SQ SCH ×6 (00:15→22:22)
[2017-03-27] MEDS: HEPARIN SODIUM - SQ 10,000 UNITS/ML VIAL SQ SCH ×2 (02:11→18:03)
[2017-03-27] MEDS: CHLORHEXIDINE GLUCONATE 2 % 1 PACK (2 CLOTHS) TOP SCH (02:12)
[2017-03-27] MEDS: PIPERACIL-TAZO 4.5 GM PREMIX 100 ML IV SCH ×2 (04:01→09:06)
[2017-03-27] MEDS: SODIUM CHLORIDE 0.9% FLUSH 10 ML FLUSH IV FLUSH SCH ×2 (09:00→22:23)
[2017-03-27] MEDS: DOCUSATE SODIUM 50 MG/SENNA 8.6 MG TAB PO SCH ×2 (09:00→21:00)
[2017-03-27] MEDS: LACTULOSE SYRUP 20 GM/30 ML CUP PO SCH (09:08)
[2017-03-27] MEDS: PANTOPRAZOLE SODIUM 40 MG VIAL IV SCH (09:08)
[2017-03-27] MEDS: INSULIN DETEMIR 100 UNITS/ML VIAL SQ SCH ×2 (09:11→22:22)
[2017-03-27] MEDS: THIAMINE INJ 100 MG in SODIUM CHLORIDE 0.9% INJ 100 ML IV SCH (09:16)
--- NOTE | 2017-03-27 11:13 | HHI.PR ---
Subjective Remarks resting comfortably with no distress. no abdominal pain, nausea or vomiting. no new complaints. Objective Vitals Vital Signs Date Time Temp Pulse Resp B/P Pulse Ox O2 Delivery O2 Flow Rate FiO2 03/27/17 08:00 98.7 78 16 100/68 92 03/27/17 04:00 98.5 76 20 104/72 93 03/27/17 00:00 98.8 79 20 109/74 95 03/26/17 22:20 93 21 03/26/17 20:00 84 03/26/17 20:00 99.0 83 20 101/70 93 03/26/17 16:00 97.7 85 20 111/74 93 03/26/17 13:40 98.3 81 16 109/65 100 03/26/17 13:35 97.7 83 16 134/83 95 03/26/17 13:25 98.3 87 16 93/69 97 03/26/17 12:30 98.7 76 16 95/51 97 03/26/17 12:00 81 03/26/17 12:00 98.4 72 21 113/73 96 I/O 03/26/17 03/26/17 03/26/17 03/27/17 03/27/17 03/27/17 07:00 15:00 23:00 07:00 15:00 23:00 Intake Total 1000 ml 100 ml 360 ml 1600 ml 120 ml Output Total 900 ml 600 ml 150 ml Balance 100 ml 100 ml -240 ml 1600 ml -30 ml Intake Oral 360 ml 120 ml IV Total 1000 ml 1600 ml Other 100 ml Output Urine Total 900 ml 600 ml 150 ml # Voids 1 # Bowel Movements 0 Result Diagram: 03/25/17 0520 03/25/17 0300 Imaging Last Impressions Brain MRI 03/24/17 1000 Signed Impressions: Service Date/Time: Friday, March 24, 2017 10:58 - CONCLUSION: 1. The 4 mm hyperdense area at the foramen of Antony documented on recent noncontrast head CT is not visible on this examination. The concern is for a small colloid cyst. If these lesions are small they can be very difficult if not impossible to visualize on MRI. There is no associated ventriculomegaly. I cannot completely exclude that the CT finding represents a very small colloid cyst. 2. Remainder of the examination is within normal limits. Colten Arce MD Head CT 03/23/17 0041 Signed Impressions: Service Date/Time: Thursday, March 23, 2017 04:32 - CONCLUSION: 4 mm hyperdense lesion adjacent to left foramen of Antony could be a colloid cyst without evidence of ventricular enlargement. Non-emergent brain MRI is recommended to confirm. Gregory Thomason MD Chest X-Ray 03/23/1740 Signed Impressions: Service Date/Time: Thursday, March 23, 2017 01:51 - CONCLUSION: Normal examination. Gregory Thomason MD Abdomen CT 03/23/17 0000 Signed Impressions: Service Date/Time: Thursday, March 23, 2017 11:11 - CONCLUSION: 1. Examination quality degraded by motion artifact. However, no pancreas abnormality is identified. 2. The only abnormality seen is a small hiatal hernia with severe wall thickening of the distal esophagus versus distal esophageal mass. Colten Arce MD Objective Remarks GENERAL: This is a well-nourished, well-developed patient, in no apparent distress. CARDIOVASCULAR: Regular rate and regular rhythm without murmurs, gallops, or rubs. RESPIRATORY: Clear to auscultation. Breath sounds equal bilaterally. No wheezes , rales, or rhonchi. GASTROINTESTINAL: Abdomen soft, non-tender, nondistended. Normal, active bowel sounds MUSCULOSKELETAL: Extremities without clubbing, cyanosis, or edema. NEURO: Alert & Oriented x4 to person, place, time, situation. Moves all ext x4 Procedures EGD Medications and IVs Current Medications IV Flush 2 ml 2 ml UNSCH PRN IV FLUSH FLUSH AFTER USING IV ACCESS; Start at 00:45; Stop 03/23/17 at 02:10; Status DC Sodium Chloride 1,000 ml @ 1,000 mls/hr Q1H IV Last administered on 03/23/17 00:55; Start 03/23/17 at 00:41; Stop 03/23/17 at 01:40; Status DC Sodium Chloride (NS 1000 ml Inj) 1,000 ml @ 999 mls/hr BOLUS ONCE IV Last administered on 03/23/17 01:24; Start 03/23/17 at 00:45; Stop 03/23/17 at 01:45 ; Status DC Ondansetron HCl 4 mg 4 mg ONCE ONCE IV PUSH Last administered on 03/23/17 00: 55; Start 03/23/17 at 00:45; Stop 03/23/17 at 00:46; Status DC Sodium Chloride 1,000 ml @ 250 mls/hr Q4H IV Last administered on 03/23/17 07 :56; Start 03/23/17 at 01:18; Stop 03/23/17 at 08:45; Status DC Dextrose/Sodium Chloride (D5W-NS 1000 ml Inj) 1,000 ml @ 200 mls/hr Q5H IV ; Start 03/23/17 at 01:18; Stop 03/23/17 at 12:01; Status DC Insulin Human Regular 8 units 8 units BOLUS ONCE IV PUSH Last administered on 03/23/17 04:15; Start 03/23/17 at 01:30; Stop 03/23/17 at 01:31; Status DC Insulin Human Regular 100 units/ Sodium Chloride 100 ml @ 0 mls/hr TITRATE IV Last administered on 03/23/17 08:52; Start 03/23/17 at 01:30; Stop 03/25/17 at 06:50; Status DC Potassium Chloride 100 ml @ 100 mls/hr Q1H PRN IV SEE LABEL COMMENTS; Start at 01:30; Stop 03/25/17 at 06:52; Status DC Potassium Chloride 100 ml @ 50 mls/hr Q2H PRN IV SEE LABEL COMMENTS Last administered on 03/23/17 07:53; Start 03/23/17 at 01:30; Stop 03/25/17 at 06:52 ; Status DC Potassium Chloride 100 ml @ 100 mls/hr Q1H PRN IV SEE LABEL COMMENTS Last administered on 03/25/17 01:39; Start 03/23/17 at 01:30; Stop 03/25/17 at 06:52 ; Status DC Potassium Chloride 100 ml @ 100 mls/hr Q1H PRN IV SEE LABEL COMMENTS; Start at 01:30; Stop 03/25/17 at 06:52; Status DC Potassium Chloride 100 ml @ 50 mls/hr Q2H PRN IV SEE LABEL COMMENTS; Start at 01:30; Stop 03/25/17 at 06:52; Status DC Potassium Chloride 100 ml @ 50 mls/hr Q2H PRN IV SEE LABEL COMMENTS; Start at 01:30; Stop 03/25/17 at 06:52; Status DC Potassium Chloride 100 ml @ 50 mls/hr Q2H PRN IV SEE LABEL COMMENTS; Start at 01:30; Stop 03/25/17 at 06:52; Status DC Potassium Chloride (KCl 20 Meq Premix Inj) 100 ml @ 50 mls/hr Q2H PRN IV SEE LABEL COMMENTS; Start 03/23/17 at 01:30; Stop 03/25/17 at 06:52; Status DC Sodium Bicarbonate (Sodium Bicarbonate 8.4% Inj) 100 meq UNSCH PRN IV SEE LABEL COMMENTS; Start 03/23/17 at 01:30; Stop 03/25/17 at 06:52; Status DC Sodium Bicarbonate 50 meq 50 meq UNSCH PRN IV SEE LABEL COMMENTS; Start at 01:30; Stop 03/25/17 at 06:52; Status DC Sodium Phosphate 15 mmol/Sodium Chloride 105 ml @ 25 mls/hr UNSCH PRN IV SEE LABEL COMMENTS Last administered on 03/23/17 08:41; Start 03/23/17 at 01:30; Stop 03/25/17 at 06:52; Status DC Piperacillin Sod/ Tazobactam Sod 100 ml @ 200 mls/hr ONCE ONCE IV Last administered on 03/23/17 02:09; Start 03/23/17 at 01:45; Stop 03/23/17 at 02:14 ; Status DC Vancomycin HCl 1000 mg/Sodium Chloride 250 ml @ 250 mls/hr ONCE ONCE IV ; Start 03/23/17 at 01:45; Stop 03/23/17 at 02:44; Status DC Potassium Chloride (KCl 10 Meq Premix Inj) 100 ml @ 100 mls/hr Q1H IV Last administered on 03/23/17 05:45; Start 03/23/17 at 02:00; Stop 03/23/17 at 04:59 ; Status DC Sodium Chloride (NS Flush) 2 ml BID IV FLUSH Last administered on 03/26/17 20: 26; Start 03/23/17 at 09:00 Sodium Chloride 2 ml 2 ml UNSCH PRN IVF FLUSH AFTER USING IV ACCESS; Start at 02:15 Piperacillin Sod/ Tazobactam Sod 50 ml @ 100 mls/hr Q8H IV Last administered on 03/24/17 01:00; Start 03/23/17 at 10:00; Stop 03/24/17 at 06:26; Status DC Pharmacy Profile Note (Vancomycin Consult Pharmacy) 0 ml @ 0 mls/hr UNSCH OTHER ; Start 03/23/17 at 02:15; Stop 03/24/17 at 06:26; Status DC Pantoprazole Sodium (Protonix Inj) 40 mg DAILY IV Last administered on 09:08; Start 03/23/17 at 09:00 Ondansetron HCl (Zofran Inj) 4 mg Q6H PRN IV NAUSEA OR VOMITING Last administered on 03/23/17 07:44; Start 03/23/17 at 02:15 Heparin Sodium (Porcine) (Heparin Inj) 5,000 units Q12H SQ Last administered on 03/27/17 02:11; Start 03/23/17 at 02:15 Miscellaneous Information 1 [id number] Last administered on 03/23/17 02:15; Start 03/23/17 at 02:15 Chlorhexidine Gluconate (Chlorhexidine 2% Cloth) 3 pack Taper DAILY@04 TOP Last administered on 03/26/17 04:00; Start 03/23/17 at 04:00; Stop 03/19/18 at 03:59 Chlorhexidine Gluconate (Chlorhexidine 2% Cloth) 3 pack UNSCH PRN TOP HYGIENIC CARE; Start 03/23/17 at 02:15 Senna/Docusate Sodium (Destiny-Colace) 1 tab BID PO Last administered on 20:26; Start 03/23/17 at 09:00 Magnesium Hydroxide (Milk Of Magnesia Liq) 30 ml Q12H PRN PO MILD - MODERATE CONSTIPATION; Start 03/23/17 at 02:15 Sennosides (Senokot) 17.2 mg Q12H PRN PO MODERATE - SEVERE CONSTIPATION; Start 03/23/17 at 02:15 Bisacodyl (Dulcolax Supp) 10 mg DAILY PRN RECTAL SEVERE CONSITIPATION; Start at 02:15 Lactulose (Lactulose Liq) 30 ml DAILY PRN PO SEVERE CONSITIPATION; Start at 02:15 Ondansetron HCl 4 mg 4 mg ONCE ONCE IV PUSH Last administered on 03/23/17 02: 39; Start 03/23/17 at 02:45; Stop 03/23/17 at 02:46; Status DC Vancomycin HCl/ Sodium Chloride (Vancomycin Inj/ NS 250 ml Inj) 262 ml @ 250 mls/hr DAILY@04 IV Last administered on 03/23/17 05:03; Start 03/23/17 at 04: 00; Stop 03/23/17 at 07:00; Status DC Metoclopramide HCl (Reglan Inj) 10 mg UNSCH X1 PRN IV NAUSEA OR VOMITING; Start 03/23/17 at 03:30; Stop 03/23/17 at 04:00; Status DC Metoclopramide HCl 10 mg 10 mg UNSCH X1 PRN IV NAUSEA OR VOMITING Last administered on 03/23/17 03:38; Start 03/23/17 at 03:30; Stop 03/23/17 at 05:00 ; Status DC Sodium Chloride 1,000 ml @ 999 mls/hr BOLUS ONCE IV Last administered on 03/23 01:45; Start 03/23/17 at 04:45; Stop 03/23/17 at 05:45; Status DC Sodium Chloride 1,000 ml @ 250 mls/hr Q4H IV Last administered on 03/23/17 10 :02; Start 03/23/17 at 08:30; Stop 03/23/17 at 12:02; Status DC Calcium Gluconate 1 gm/Sodium Chloride 110 ml @ 110 mls/hr ONCE ONCE IV Last administered on 03/23/17 12:57; Start 03/23/17 at 10:00; Stop 03/23/17 at 10:59 ; Status DC Thiamine HCl/ Sodium Chloride (Thiamine Inj/NS Inj) 101 ml @ 101 mls/hr DAILY IV Last administered on 03/27/17 09:16; Start 03/23/17 at 10:00 Acetaminophen (Tylenol) 650 mg Q6H PRN PO PAIN 1-10 AND/OR FEVER >101F; Start 03/23/17 at 09:00 Acetaminophen/ Hydrocodone Bitart ([place] 5-325 Mg) 1 tab Q4H PRN PO PAIN SCALE 1 TO 5; Start 03/23/17 at 09:00 Morphine Sulfate (Morphine Inj) 2 mg Q2H PRN IV PAIN SCALE 6 TO 10; Start 03/23 at 09:00 Lactulose (Lactulose Liq) 30 ml DAILY PO Last administered on 03/27/17 09:08; Start 03/23/17 at 09:00 Sodium Bicarbonate 100 meq 100 meq ONCE ONCE IV PUSH Last administered on 03/23 12:13; Start 03/23/17 at 11:00; Stop 03/23/17 at 11:01; Status DC Vancomycin HCl/ Sodium Chloride (Vancomycin Inj/ NS 250 ml Inj) 262.5 ml @ 250 mls/hr Q24H IV Last administered on 03/24/17 04:31; Start 03/24/17 at 05:00; Stop 03/24/17 at 06:27; Status DC Miscellaneous Information SPECIFIC LAB TO BE DRAWN:VANCOMYCIN TROUGH DATE TO... ONCE ONCE .XX ; Start 03/26/17 at 04:45; Stop 03/26/17 at 04:46; Status DC Dextrose/Sodium Chloride 1,000 ml @ 200 mls/hr Q5H IV Last administered on 13:00; Start 03/23/17 at 14:00; Stop 03/23/17 at 15:33; Status DC Potassium Chloride 30 meq/ Sodium Chloride 115 ml @ 38.333 mls/ hr ONCE ONCE IV-CENTRAL Last administered on 03/23/17 17:26; Start 03/23/17 at 17:00; Stop 03/23/17 at 19:59; Status DC Sodium Phosphate 30 mmol/Sodium Chloride 260 ml @ 43.333 mls/ hr ONCE ONCE IV Last administered on 03/23/17 17:26; Start 03/23/17 at 17:00; Stop 03/23/17 at 22:59; Status DC Potassium Chloride 10 meq/ Dextrose/Sodium Chloride 1,005 ml @ 150 mls/hr Q6H42M IV ; Start 03/23/17 at 15:30; Stop 03/23/17 at 16:03; Status DC Sodium Chloride 56 meq/Potassium Chloride 10 meq/ Dextrose 1,019 ml @ 150 mls/ hr Q6H48M IV Last administered on 03/23/17 17:26; Start 03/23/17 at 17:00; Stop 03/23/17 at 20:09; Status DC Potassium Chloride 100 ml @ 25 mls/hr Q4H IV Last administered on 03/23/17 22 :59; Start 03/23/17 at 20:00; Stop 03/24/17 at 03:59; Status DC Sodium Phosphate 30 mmol/Sodium Chloride 260 ml @ 43.333 mls/ hr ONCE ONCE IV Last administered on 03/23/17 21:13; Start 03/23/17 at 23:00; Stop 03/24/17 at 04:59; Status DC Potassium Chloride 10 meq/ Dextrose/Sodium Chloride 1,005 ml @ 150 mls/hr Q6H42M IV Last administered on 03/24/17 03:47; Start 03/23/17 at 21:00; Stop 03/24/17 at 06:27; Status DC Sodium Phosphate/ Sodium Chloride (Sodium Phosphate Inj/NS 250 ml Inj) 260 ml @ 43.333 mls/ hr ONCE ONCE IV Last administered on 03/24/17 09:29; Start at 07:00; Stop 03/24/17 at 12:59; Status DC Gadodiamide 15 ml 15 ml STK-MED ONCE IV Last administered on 03/24/17 11:05; Start 03/24/17 at 11:05; Stop 03/24/17 at 11:06; Status DC Potassium Chloride/Dextrose/ Sod Cl 1,000 ml @ 100 mls/hr Q10H IV Last administered on 03/24/17 21:58; Start 03/24/17 at 12:00; Stop 03/24/17 at 21:58 ; Status DC Sodium Phosphate 30 mmol/Sodium Chloride 260 ml @ 43.333 mls/ hr ONCE ONCE IV ; Start 03/24/17 at 15:30; Stop 03/24/17 at 21:29; Status DC Potassium Chloride 100 ml @ 50 mls/hr BOLUS ONCE IV Last administered on 03/24 15:30; Start 03/24/17 at 15:30; Stop 03/24/17 at 17:29; Status DC Piperacillin Sod/ Tazobactam Sod 100 ml @ 200 mls/hr Q6H IV Last administered on 03/27/17 09:06; Start 03/24/17 at 22:00 Potassium Chloride/Dextrose/ Sod Cl (D5-1/2 NS + KCl 10 Meq Inj) 1,000 ml @ 125 mls/hr Q8H IV Last administered on 03/27/17 09:24; Start 03/24/17 at 22:00 Miscellaneous Information 1 ONCE ONCE .XX ; Start 03/25/17 at 06:45; Stop 03/25 at 06:53; Status DC Miscellaneous Information 1 ONCE ONCE .XX ; Start 03/25/17 at 06:45; Stop 03/25 at 06:53; Status DC Insulin Detemir (Levemir Inj) 10 units Q12HR SQ Last administered on 03/27/17 09:11; Start 03/25/17 at 06:45 Insulin Aspart (NovoLOG SUPPLEMENTAL SCALE) 1 Q4HR SQ Last administered on 03/27 09:11; Start 03/25/17 at 08:00 Dextrose (D50w (Vial) Inj) 50 ml UNSCH PRN IV HYPOGLYCEMIA-SEE COMMENTS; Start 03/25/17 at 06:45 Glucagon 1 mg 1 mg UNSCH PRN OTHER HYPOGLYCEMIA-SEE COMMENTS; Start 03/25/17 at 06:45 Insulin Human Regular 100 units/ Sodium Chloride 100 ml @ 0 mls/hr TITRATE IV ; Start 03/25/17 at 07:00; Stop 03/25/17 at 09:00; Status DC Potassium Chloride (KCl 40 Meq Premix Inj) 100 ml @ 25 mls/hr BOLUS ONCE IV Last administered on 03/25/17 10:00; Start 03/25/17 at 07:15; Stop 03/25/17 at 11:14; Status DC Potassium Phos/ Sodium Phos (K-Phos Neutral) 250 mg ONCE ONCE PO Last administered on 03/26/17 17:36; Start 03/26/17 at 16:00; Stop 03/26/17 at 16:01 ; Status DC Propofol (Diprivan 200 Mg/20 ml Inj) 150 mg STK-MED ONCE IV ; Start 03/26/17 at 13:56; Stop 03/26/17 at 13:57; Status DC Date of Insertion: March 22, 2017 Line: Central Venous Catheter Side: Right Location: Femoral A/P Assessment and Plan A/P Acute toxic metabolic encephalopathy 4 mm lesion at left foramen of Antony Encephalopathy likely secondary to metabolic derangement. CT head 03/19 revealed a 4 mm lesion a leftt foramen of Morales. Possible colloid cyst-however this was not visible on MRI brain. Acetaminophen for fever [place]/morphine as needed for pain management Severe sepsis-resolved Hypovolemic shock-resolved Lactic acidosis-resolvedd Lactic acid has cleared. Pertinent cultures 03/23 - blood cultures 2 -negative 03/23 - UA - no growth Sputum cultures with normal respiratory karen Influenza ordered will dc antibiotics. Acute respiratory insufficiency secondary to metabolic arrangement - resolved Nasal cannula to maintain saturations greater than or equal to 92% Incentive spirometry while awake Chest x-ray revealed no acute cardio pulmonary findings Nausea/vomiting - resolved. Hyperammonemia - resolved Lower esophageal inflammation versus mass Mild pancreatitis Currently nothing by mouth due to esophageal edema likely secondary to protracted nausea and vomiting Zofran 4 mg every 6 hours as needed for nausea CT abdomen/pelvis revealed distal esophageal swelling/inflammation versus mass. GI consult noted - s/p EGD with esophagitis and gastritis. continue PPI Amylase and lipase normalized Liver function tests within normal limits Lactulose daily. On lactulose 30 cc daily bowel regimen. Protonix 40 mg IV daily for GI prophylaxis RENAL: Acute kidney injury - likely prerenal - resolving CT abdomen/pelvis 03/23 did not reveal hydronephrosis Urine eosinophils negative. Strict intake output- Continue IV hydration Leukocytosis - bandemia - resolving Polycythemia - likely secondary to dehydration - resolved Elevated PTT Monitor CBC daily. Follow trends Repeat PTT in a.m. Doubt factor deficiency DKA-resolved started on Levemir 10 units subcutaneously every 12 hourly and sliding scale insulin. transition to 1800 ADA diet Hemoglobin A1c ; 10.9 Diabetic education Hypophosphatemia- replaced. Prophylaxis - GI - Protonix - DVT - SCD/heparin subcutaneous Discharge Planning dc home later today or in am-pending diabetic education and if can tolerate the diet. see med list. f/u; pcp and GI. d/w the patient. time spent 31 min. Kendra Cope MD March 27, 2017 11:13
[2017-03-27] MEDS ORDERED: PROT40TA PO (11:16)
[2017-03-27] MEDS ORDERED: NOVOLOGSS SQ (11:16)
[2017-03-27] MEDS ORDERED: LEVEMIR SQ (11:16)
--- NOTE | 2017-03-27 11:16 | HHI.DCPOC ---
Discharge Care Plan Diagnosis: (1) DKA (diabetic ketoacidoses) Your Health Problems Are: Fluctuating Blood Sugars Goals to Promote Your Health * To prevent worsening of your condition and complications * To maintain your health at the optimal level Directions to Meet Your Goals Take your medications as prescribed Follow your dietary instruction Follow activity as directed Keep your appointments as scheduled Take your immunizations and boosters as scheduled If your symptoms worsen call your PCP, if no PCP go to Urgent Care Center or Emergency Room Smoking is Dangerous to Your Health. Avoid second hand smoke Call the 24-hour hour crisis hotline for domestic abuse at Kendra Cope MD March 27, 2017 11:16
--- NOTE | 2017-03-27 11:17 | HHI.DS ---
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 Date of admission 03/23/2017. Past medical history includes undiagnosed diabetes. Patient was recently on a camping trip [facility] Patient was in his normal state of health until Saturday when experiencing intractable nausea and vomiting. No diarrhea. No hematemesis or coffee ground emesis. Initially treated at urgent care with Levsin and Zofran. Symptoms persisted percent to [facility]. CT head revealed possible 4 mm colloid cyst at left foramen of Antony. Chest x-ray unremarkable. Was noted to be hyponatremic, hypokalemic, leukocytosis with elevated bands with an elevated blood sugar and elevated beta hydroxybutyrate. Was given 2 L normal saline. 8 units IV insulin in the ED initiated on DKA protocol protocol. A left femoral central line placed by ED physician. CBC/BMP: 03/25/17 0520 03/25/17 0300 Significant Findings Laboratory Tests Test 03/24/17 03/24/17 03/24/17 03/25/17 14:30 17:45 22:50 03:00 Sodium Level 134 MEQ/L (136-145) Carbon Dioxide Level 14.2 MEQ/L 18.8 MEQ/L 18.3 MEQ/L (21.0-32.0) (21.0-32.0) (21.0-32.0) Anion Gap 17 MEQ/L (5-15) Estimat Glomerular Filtration 82 ML/MIN (>89) 73 ML/MIN (>89) 82 ML/MIN (>89) Rate Random Glucose 197 MG/DL 185 MG/DL 164 MG/DL (74-106) (74-106) (74-106) Calcium Level 8.2 MG/DL 8.3 MG/DL (8.5-10.1) (8.5-10.1) Phosphorus Level 1.9 MG/DL 1.5 MG/DL (2.5-4.9) (2.5-4.9) Magnesium Level 2.6 MG/DL (1.5-2.5) Cholesterol Level 105 MG/DL (120-200) B-Hydroxybutyrate 5.68 MMOL/L 3.10 MMOL/L (0.00-0.39) (0.00-0.39) Hemoglobin A1c 10.9 % (4.3-6.0) Potassium Level 3.4 MEQ/L (3.5-5.1) Aspartate Amino Transf 8 U/L (15-37) (AST/SGOT) Alanine Aminotransferase 11 U/L (12-78) (ALT/SGPT) Total Creatine Kinase 28 U/L (39-308) Total Protein 6.0 GM/DL (6.4-8.2) Albumin 2.3 GM/DL (3.4-5.0) Test 03/25/17 03/26/17 05:20 04:45 Platelet Count 139 TH/MM3 (150-450) Mean Platelet Volume 12.0 FL (7.0-11.0) Neutrophils (%) (Auto) 81.2 % (16.0-70.0) Lymphocytes (%) (Auto) 7.3 % (9.0-44.0) Monocytes (%) (Auto) 10.9 % (0.0-8.0) Lymphocytes # (Auto) 0.7 TH/MM3 (1.0-4.8) Monocytes # (Auto) 1.0 TH/MM3 (0-0.9) Band Neutrophils % 19 % (0-6) Lymphocytes % 7 % (9-44) Monocytes % 12 % (0-8) Dohle Bodies PRESENT (NONE SEEN) Platelet Estimate LOW (NORMAL) Phosphorus Level 2.0 MG/DL (2.5-4.9) Vancomycin Level Trough LESS THAN 0.8 MCG/ML (5.0-10.0) Imaging Last Impressions Brain MRI 03/24/17 1000 Signed Impressions: Service Date/Time: Friday, March 24, 2017 10:58 - CONCLUSION: 1. The 4 mm hyperdense area at the foramen of Antony documented on recent noncontrast head CT is not visible on this examination. The concern is for a small colloid cyst. If these lesions are small they can be very difficult if not impossible to visualize on MRI. There is no associated ventriculomegaly. I cannot completely exclude that the CT finding represents a very small colloid cyst. 2. Remainder of the examination is within normal limits. Colten Arce MD Head CT 03/23/17 0041 Signed Impressions: Service Date/Time: Thursday, March 23, 2017 04:32 - CONCLUSION: 4 mm hyperdense lesion adjacent to left foramen of Antony could be a colloid cyst without evidence of ventricular enlargement. Non-emergent brain MRI is recommended to confirm. Gregory Thomason MD Chest X-Ray 03/23/1740 Signed Impressions: Service Date/Time: Thursday, March 23, 2017 01:51 - CONCLUSION: Normal examination. Gregory Thomason MD Abdomen CT 03/23/17 0000 Signed Impressions: Service Date/Time: Thursday, March 23, 2017 11:11 - CONCLUSION: 1. Examination quality degraded by motion artifact. However, no pancreas abnormality is identified. 2. The only abnormality seen is a small hiatal hernia with severe wall thickening of the distal esophagus versus distal esophageal mass. Colten Arce MD PE at Discharge GENERAL: This is a well-nourished, well-developed patient, in no apparent distress. CARDIOVASCULAR: Regular rate and regular rhythm without murmurs, gallops, or rubs. RESPIRATORY: Clear to auscultation. Breath sounds equal bilaterally. No wheezes , rales, or rhonchi. GASTROINTESTINAL: Abdomen soft, non-tender, nondistended. Normal, active bowel sounds MUSCULOSKELETAL: Extremities without clubbing, cyanosis, or edema. NEURO: Alert & Oriented x4 to person, place, time, situation. Moves all ext x4 Transfer Summary 41-year-old male. Date of admission 03/23/2017. Past medical history includes undiagnosed diabetes. Patient was recently on a camping trip [facility] Patient was in his normal state of health until Saturday when experiencing intractable nausea and vomiting. No diarrhea. No hematemesis or coffee ground emesis. Initially treated at urgent care with Levsin and Zofran. Symptoms persisted percent to [facility]. CT head revealed possible 4 mm colloid cyst at left foramen of Antony. Chest x-ray unremarkable. Was noted to be hyponatremic, hypokalemic, leukocytosis with elevated bands with an elevated blood sugar and elevated beta hydroxybutyrate. Was given 2 L normal saline. 8 units IV insulin in the ED initiated on DKA protocol protocol. A left femoral central line placed by ED physician. Subjective 03/24: Mental status much improved this AM. Anion gap is closed. Did not initiate tube feeding secondary to esophageal's edema GI will assess today. On insulin drip at 2 units an hour. Continues to have raspy voice. 03/25: Awake and alert, resting in bed comfortably. Raspy voice persists. States that he feels much better. Denies any nausea or vomiting. Denies any abdominal pain. Currently is NPO following GI eval or deciding regarding EGD. Insulin drip held and being started on Levemir as his anion gap is corrected. Continuing D5 1/2NS at 125 cc per hour as he is currently nothing by mouth pending GI clearance Hospital Course - GI bleed GI consult appreciated- s/p EGD with duodenal ulcer and gastritis- biopsy pending. continue PPI. -anemia due to GI bleed/ alcohol abuse s/p PRBC transfusion- continue to monitor H/H- -history of hypertension; vasotec prn for now- will monitor BP -alcohol abuse; CIWA protocol- started thiamine. advised to stop drinking. -DVT prophylaxis with SCD's Pt Condition on Discharge: Good Discharge Disposition: Discharge Home Discharge Time: > 30 minutes Discharge Instructions DIET: Follow Instructions for: Diabetic Diet Activities you can perform: Regular-No Restrictions Follow up Referrals: Gastroenterology PCP Follow-up New Medications: Pantoprazole (Protonix) 40 Mg Tab 40 MG PO DAILY Reflux #30 Ref 0 TAB Insulin Aspart Inj (Novolog Inj) 100 Unit/Ml Inj 1 UNIT SQ Q4HR accu-check AC/HS with sliding scale coverage; 150-200 two units 201-250 four units 251-300 six units 301-350 eight units 351-400 ten units inform PCP if < 70 or > 400. diabetes Days 30 Ref 0 INJECTION Insulin Detemir Inj (Levemir Inj) 1,000 unit/ 10 ML Vial 10 UNITS SQ Q12HR diabetes Days 30 Ref 0 INJECTION Kendra Cope MD March 27, 2017 11:17
[2017-03-27] MEDS: ONDANSETRON HCL 4 MG/2 ML VIAL IV PRN (18:20)
--- NOTE | 2017-03-27 18:57 | HHI.GIFU ---
Subjective Remarks feels back to normal, eating ok, no nausea or vomiting Objective Vitals I&O Vital Signs Date Time Temp Pulse Resp B/P Pulse Ox O2 Delivery O2 Flow Rate FiO2 03/27/17 16:00 98.4 84 16 109/72 91 03/27/17 12:00 99.3 81 16 103/66 93 03/27/17 08:00 98.7 78 16 100/68 92 03/27/17 04:00 98.5 76 20 104/72 93 03/27/17 00:00 98.8 79 20 109/74 95 03/26/17 22:20 93 21 03/26/17 20:00 84 03/26/17 20:00 99.0 83 20 101/70 93 I/O 03/26/17 03/26/17 03/26/17 03/27/17 03/27/17 03/27/17 07:00 15:00 23:00 07:00 15:00 23:00 Intake Total 1000 ml 100 ml 360 ml 1600 ml 600 ml Output Total 900 ml 600 ml 550 ml Balance 100 ml 100 ml -240 ml 1600 ml 50 ml Intake Oral 360 ml 600 ml IV Total 1000 ml 1600 ml Other 100 ml Output Urine Total 900 ml 600 ml 550 ml # Voids 2 # Bowel Movements 1 Laboratory Date/Time Procedure Status Source Growth 03/24/17 03:00 Gram Stain - Final Complete Sputum Expectorated Sputum 03/24/17 03:00 Sputum Culture - Final Complete Sputum Expectorated Sputum HEAVY GROWTH NORMAL RESPIRATORY CORIN 03/23/17 02:34 Urine Culture - Final Complete Urine Catheterized Urine NO GROWTH IN 48 HOURS. 03/23/17 00:50 Aerobic Blood Culture - Preliminary Resulted Blood Peripheral NO GROWTH IN 4 DAYS 03/23/17 00:50 Anaerobic Blood Culture - Preliminary Resulted Blood Peripheral NO GROWTH IN 4 DAYS Physical Exam HEENT: Pupils round and reactive to light; normocephalic; atraumatic; no jaundice. Throat is clear. NECK: Neck is supple, no JVD, no lymphadenopathy. CHEST: Chest is clear to auscultation and percussion. CARDIAC: Regular rate and rhythm with no murmur gallop or rubs. ABDOMEN: Soft, nondistended, nontender; no hepatosplenomegaly; bowel sounds are present in all four quadrants. EXTREMITIES: No clubbing, cyanosis, or edema. SKIN: Normal; no rash; no jaundice. Assessment and Plan Plan abdominal pain, nausea vomiting, EGD showed sever gastritis and sever esophagitis (black esophagus) Bx pancreatitis better 03-27-17 doing well tolerating food no vomiting continue PPI better control DM EGD in 2 months await Bx ok to [place] home from GI stand Lacey Sabillon MD March 27, 2017 18:57
[2017-03-28] VITALS: BP 92/60; PULSE 78; RESP 16; TEMP 98.5; O2SAT 98
[2017-03-28] MEDS: INSULIN ASPART SUPPLEMENTAL SCALE SQ SCH ×2 (00:39→04:42)
[2017-03-28] MEDS: HEPARIN SODIUM - SQ 10,000 UNITS/ML VIAL SQ SCH (02:25)
[2017-03-28 04:00] VITALS: BP 106/73; PULSE 79; RESP 17; TEMP 97.5; O2SAT 95
[2017-03-28] MEDS: CHLORHEXIDINE GLUCONATE 2 % 1 PACK (2 CLOTHS) TOP SCH (04:00)
[2017-03-28 08:00] VITALS: BP 128/75; PULSE 80; PULSE 82; RESP 18; TEMP 97.8; O2SAT 95
[2017-03-28] MEDS: SODIUM CHLORIDE 0.9% FLUSH 10 ML FLUSH IV FLUSH SCH (08:57)
--- NOTE | 2017-03-28 10:17 | HHI.PR ---
Subjective Remarks resting comfortably with no distress. no new complaints. wants to go home today. Objective Vitals Vital Signs Date Time Temp Pulse Resp B/P Pulse Ox O2 Delivery O2 Flow Rate FiO2 03/28/17 08:00 97.8 80 18 128/75 95 03/28/17 04:00 97.5 79 17 106/73 95 03/28/17 00:00 98.5 78 16 92/60 98 03/27/17 21:19 94 21 03/27/17 20:00 78 03/27/17 20:00 98.2 88 18 115/73 96 03/27/17 16:00 98.4 84 16 109/72 91 03/27/17 12:00 99.3 81 16 103/66 93 I/O 03/27/17 03/27/17 03/27/17 03/28/17 03/28/17 03/28/17 07:00 15:00 23:00 07:00 15:00 23:00 Intake Total 1600 ml 600 ml Output Total 550 ml 500 ml Balance 1600 ml 50 ml -500 ml Intake Oral 600 ml IV Total 1600 ml Output Urine Total 550 ml 500 ml # Voids 2 3 # Bowel Movements 1 Result Diagram: 03/25/17 0520 03/25/17 0300 Imaging Last Impressions Brain MRI 03/24/17 1000 Signed Impressions: Service Date/Time: Friday, March 24, 2017 10:58 - CONCLUSION: 1. The 4 mm hyperdense area at the foramen of Antony documented on recent noncontrast head CT is not visible on this examination. The concern is for a small colloid cyst. If these lesions are small they can be very difficult if not impossible to visualize on MRI. There is no associated ventriculomegaly. I cannot completely exclude that the CT finding represents a very small colloid cyst. 2. Remainder of the examination is within normal limits. Colten Arce MD Head CT 03/23/1740 Signed Impressions: Service Date/Time: Thursday, March 23, 2017 04:32 - CONCLUSION: 4 mm hyperdense lesion adjacent to left foramen of Antony could be a colloid cyst without evidence of ventricular enlargement. Non-emergent brain MRI is recommended to confirm. Gregory Thomason MD Chest X-Ray 03/23/1740 Signed Impressions: Service Date/Time: Thursday, March 23, 2017 01:51 - CONCLUSION: Normal examination. Gregory Thomason MD Abdomen CT 03/23/17 0000 Signed Impressions: Service Date/Time: Thursday, March 23, 2017 11:11 - CONCLUSION: 1. Examination quality degraded by motion artifact. However, no pancreas abnormality is identified. 2. The only abnormality seen is a small hiatal hernia with severe wall thickening of the distal esophagus versus distal esophageal mass. Colten Arce MD Objective Remarks GENERAL: This is a well-nourished, well-developed patient, in no apparent distress. CARDIOVASCULAR: Regular rate and regular rhythm without murmurs, gallops, or rubs. RESPIRATORY: Clear to auscultation. Breath sounds equal bilaterally. No wheezes , rales, or rhonchi. GASTROINTESTINAL: Abdomen soft, non-tender, nondistended. Normal, active bowel sounds MUSCULOSKELETAL: Extremities without clubbing, cyanosis, or edema. NEURO: Alert & Oriented x4 to person, place, time, situation. Moves all ext x4 Procedures EGD Medications and IVs Current Medications IV Flush 2 ml 2 ml UNSCH PRN IV FLUSH FLUSH AFTER USING IV ACCESS; Start at 00:45; Stop 03/23/17 at 02:10; Status DC Sodium Chloride 1,000 ml @ 1,000 mls/hr Q1H IV Last administered on 03/23/17 00:55; Start 03/23/17 at 00:41; Stop 03/23/17 at 01:40; Status DC Sodium Chloride (NS 1000 ml Inj) 1,000 ml @ 999 mls/hr BOLUS ONCE IV Last administered on 03/23/17 01:24; Start 03/23/17 at 00:45; Stop 03/23/17 at 01:45 ; Status DC Ondansetron HCl 4 mg 4 mg ONCE ONCE IV PUSH Last administered on 03/23/17 00: 55; Start 03/23/17 at 00:45; Stop 03/23/17 at 00:46; Status DC Sodium Chloride 1,000 ml @ 250 mls/hr Q4H IV Last administered on 03/23/17 07 :56; Start 03/23/17 at 01:18; Stop 03/23/17 at 08:45; Status DC Dextrose/Sodium Chloride (D5W-NS 1000 ml Inj) 1,000 ml @ 200 mls/hr Q5H IV ; Start 03/23/17 at 01:18; Stop 03/23/17 at 12:01; Status DC Insulin Human Regular 8 units 8 units BOLUS ONCE IV PUSH Last administered on 03/23/17 04:15; Start 03/23/17 at 01:30; Stop 03/23/17 at 01:31; Status DC Insulin Human Regular 100 units/ Sodium Chloride 100 ml @ 0 mls/hr TITRATE IV Last administered on 03/23/17 08:52; Start 03/23/17 at 01:30; Stop 03/25/17 at 06:50; Status DC Potassium Chloride 100 ml @ 100 mls/hr Q1H PRN IV SEE LABEL COMMENTS; Start at 01:30; Stop 03/25/17 at 06:52; Status DC Potassium Chloride 100 ml @ 50 mls/hr Q2H PRN IV SEE LABEL COMMENTS Last administered on 03/23/17 07:53; Start 03/23/17 at 01:30; Stop 03/25/17 at 06:52 ; Status DC Potassium Chloride 100 ml @ 100 mls/hr Q1H PRN IV SEE LABEL COMMENTS Last administered on 03/25/17 01:39; Start 03/23/17 at 01:30; Stop 03/25/17 at 06:52 ; Status DC Potassium Chloride 100 ml @ 100 mls/hr Q1H PRN IV SEE LABEL COMMENTS; Start at 01:30; Stop 03/25/17 at 06:52; Status DC Potassium Chloride 100 ml @ 50 mls/hr Q2H PRN IV SEE LABEL COMMENTS; Start at 01:30; Stop 03/25/17 at 06:52; Status DC Potassium Chloride 100 ml @ 50 mls/hr Q2H PRN IV SEE LABEL COMMENTS; Start at 01:30; Stop 03/25/17 at 06:52; Status DC Potassium Chloride 100 ml @ 50 mls/hr Q2H PRN IV SEE LABEL COMMENTS; Start at 01:30; Stop 03/25/17 at 06:52; Status DC Potassium Chloride (KCl 20 Meq Premix Inj) 100 ml @ 50 mls/hr Q2H PRN IV SEE LABEL COMMENTS; Start 03/23/17 at 01:30; Stop 03/25/17 at 06:52; Status DC Sodium Bicarbonate (Sodium Bicarbonate 8.4% Inj) 100 meq UNSCH PRN IV SEE LABEL COMMENTS; Start 03/23/17 at 01:30; Stop 03/25/17 at 06:52; Status DC Sodium Bicarbonate 50 meq 50 meq UNSCH PRN IV SEE LABEL COMMENTS; Start at 01:30; Stop 03/25/17 at 06:52; Status DC Sodium Phosphate 15 mmol/Sodium Chloride 105 ml @ 25 mls/hr UNSCH PRN IV SEE LABEL COMMENTS Last administered on 03/23/17 08:41; Start 03/23/17 at 01:30; Stop 03/25/17 at 06:52; Status DC Piperacillin Sod/ Tazobactam Sod 100 ml @ 200 mls/hr ONCE ONCE IV Last administered on 03/23/17 02:09; Start 03/23/17 at 01:45; Stop 03/23/17 at 02:14 ; Status DC Vancomycin HCl 1000 mg/Sodium Chloride 250 ml @ 250 mls/hr ONCE ONCE IV ; Start 03/23/17 at 01:45; Stop 03/23/17 at 02:44; Status DC Potassium Chloride (KCl 10 Meq Premix Inj) 100 ml @ 100 mls/hr Q1H IV Last administered on 03/23/17 05:45; Start 03/23/17 at 02:00; Stop 03/23/17 at 04:59 ; Status DC Sodium Chloride (NS Flush) 2 ml BID IV FLUSH Last administered on 03/28/17 08: 57; Start 03/23/17 at 09:00 Sodium Chloride 2 ml 2 ml UNSCH PRN IVF FLUSH AFTER USING IV ACCESS; Start at 02:15 Piperacillin Sod/ Tazobactam Sod 50 ml @ 100 mls/hr Q8H IV Last administered on 03/24/17 01:00; Start 03/23/17 at 10:00; Stop 03/24/17 at 06:26; Status DC Pharmacy Profile Note (Vancomycin Consult Pharmacy) 0 ml @ 0 mls/hr UNSCH OTHER ; Start 03/23/17 at 02:15; Stop 03/24/17 at 06:26; Status DC Pantoprazole Sodium (Protonix Inj) 40 mg DAILY IV Last administered on 09:08; Start 03/23/17 at 09:00 Ondansetron HCl (Zofran Inj) 4 mg Q6H PRN IV NAUSEA OR VOMITING Last administered on 03/27/17 18:20; Start 03/23/17 at 02:15 Heparin Sodium (Porcine) (Heparin Inj) 5,000 units Q12H SQ Last administered on 03/28/17 02:25; Start 03/23/17 at 02:15 Miscellaneous Information 1 [id number] XX Last administered on 03/23/17 02:15; Start 03/23/17 at 02:15 Chlorhexidine Gluconate (Chlorhexidine 2% Cloth) Taper DAILY@04 TOP Last administered on 03/26/17 04:00; Start 03/23/17 at 04:00; Stop 03/19/18 at 03:59 Chlorhexidine Gluconate (Chlorhexidine 2% Cloth) 3 pack UNSCH PRN TOP HYGIENIC CARE; Start 03/23/17 at 02:15 Senna/Docusate Sodium (Destiny-Colace) 1 tab BID PO Last administered on 20:26; Start 03/23/17 at 09:00 Magnesium Hydroxide (Milk Of Magnesia Liq) 30 ml Q12H PRN PO MILD - MODERATE CONSTIPATION; Start 03/23/17 at 02:15 Sennosides (Senokot) 17.2 mg Q12H PRN PO MODERATE - SEVERE CONSTIPATION; Start 03/23/17 at 02:15 Bisacodyl (Dulcolax Supp) 10 mg DAILY PRN RECTAL SEVERE CONSITIPATION; Start at 02:15 Lactulose (Lactulose Liq) 30 ml DAILY PRN PO SEVERE CONSITIPATION; Start at 02:15 Ondansetron HCl 4 mg 4 mg ONCE ONCE IV PUSH Last administered on 03/23/17 02: 39; Start 03/23/17 at 02:45; Stop 03/23/17 at 02:46; Status DC Vancomycin HCl/ Sodium Chloride (Vancomycin Inj/ NS 250 ml Inj) 262 ml @ 250 mls/hr DAILY@04 IV Last administered on 03/23/17 05:03; Start 03/23/17 at 04: 00; Stop 03/23/17 at 07:00; Status DC Metoclopramide HCl (Reglan Inj) 10 mg UNSCH X1 PRN IV NAUSEA OR VOMITING; Start 03/23/17 at 03:30; Stop 03/23/17 at 04:00; Status DC Metoclopramide HCl 10 mg 10 mg UNSCH X1 PRN IV NAUSEA OR VOMITING Last administered on 03/23/17 03:38; Start 03/23/17 at 03:30; Stop 03/23/17 at 05:00 ; Status DC Sodium Chloride 1,000 ml @ 999 mls/hr BOLUS ONCE IV Last administered on 03/23 01:45; Start 03/23/17 at 04:45; Stop 03/23/17 at 05:45; Status DC Sodium Chloride 1,000 ml @ 250 mls/hr Q4H IV Last administered on 03/23/17 10 :02; Start 03/23/17 at 08:30; Stop 03/23/17 at 12:02; Status DC Calcium Gluconate 1 gm/Sodium Chloride 110 ml @ 110 mls/hr ONCE ONCE IV Last administered on 03/23/17 12:57; Start 03/23/17 at 10:00; Stop 03/23/17 at 10:59 ; Status DC Thiamine HCl/ Sodium Chloride (Thiamine Inj/NS Inj) 101 ml @ 101 mls/hr DAILY IV Last administered on 03/27/17 09:16; Start 03/23/17 at 10:00 Acetaminophen (Tylenol) 650 mg Q6H PRN PO PAIN 1-10 AND/OR FEVER >101F; Start 03/23/17 at 09:00 Acetaminophen/ Hydrocodone Bitart (Fay 5-325 Mg) 1 tab Q4H PRN PO PAIN SCALE 1 TO 5; Start 03/23/17 at 09:00 Morphine Sulfate (Morphine Inj) 2 mg Q2H PRN IV PAIN SCALE 6 TO 10 Last administered on 03/27/17 18:21; Start 03/23/17 at 09:00 Lactulose (Lactulose Liq) 30 ml DAILY PO Last administered on 03/27/17 09:08; Start 03/23/17 at 09:00 Sodium Bicarbonate 100 meq 100 meq ONCE ONCE IV PUSH Last administered on 03/23 12:13; Start 03/23/17 at 11:00; Stop 03/23/17 at 11:01; Status DC Vancomycin HCl/ Sodium Chloride (Vancomycin Inj/ NS 250 ml Inj) 262.5 ml @ 250 mls/hr Q24H IV Last administered on 03/24/17 04:31; Start 03/24/17 at 05:00; Stop 03/24/17 at 06:27; Status DC Miscellaneous Information SPECIFIC LAB TO BE DRAWN:VANCOMYCIN TROUGH DATE TO... ONCE ONCE .XX ; Start 03/26/17 at 04:45; Stop 03/26/17 at 04:46; Status DC Dextrose/Sodium Chloride 1,000 ml @ 200 mls/hr Q5H IV Last administered on 13:00; Start 03/23/17 at 14:00; Stop 03/23/17 at 15:33; Status DC Potassium Chloride 30 meq/ Sodium Chloride 115 ml @ 38.333 mls/ hr ONCE ONCE IV-CENTRAL Last administered on 03/23/17 17:26; Start 03/23/17 at 17:00; Stop 03/23/17 at 19:59; Status DC Sodium Phosphate 30 mmol/Sodium Chloride 260 ml @ 43.333 mls/ hr ONCE ONCE IV Last administered on 03/23/17 17:26; Start 03/23/17 at 17:00; Stop 03/23/17 at 22:59; Status DC Potassium Chloride 10 meq/ Dextrose/Sodium Chloride 1,005 ml @ 150 mls/hr Q6H42M IV ; Start 03/23/17 at 15:30; Stop 03/23/17 at 16:03; Status DC Sodium Chloride 56 meq/Potassium Chloride 10 meq/ Dextrose 1,019 ml @ 150 mls/ hr Q6H48M IV Last administered on 03/23/17 17:26; Start 03/23/17 at 17:00; Stop 03/23/17 at 20:09; Status DC Potassium Chloride 100 ml @ 25 mls/hr Q4H IV Last administered on 03/23/17 22 :59; Start 03/23/17 at 20:00; Stop 03/24/17 at 03:59; Status DC Sodium Phosphate 30 mmol/Sodium Chloride 260 ml @ 43.333 mls/ hr ONCE ONCE IV Last administered on 03/23/17 21:13; Start 03/23/17 at 23:00; Stop 03/24/17 at 04:59; Status DC Potassium Chloride 10 meq/ Dextrose/Sodium Chloride 1,005 ml @ 150 mls/hr Q6H42M IV Last administered on 03/24/17 03:47; Start 03/23/17 at 21:00; Stop 03/24/17 at 06:27; Status DC Sodium Phosphate/ Sodium Chloride (Sodium Phosphate Inj/NS 250 ml Inj) 260 ml @ 43.333 mls/ hr ONCE ONCE IV Last administered on 03/24/17 09:29; Start at 07:00; Stop 03/24/17 at 12:59; Status DC Gadodiamide 15 ml 15 ml STK-MED ONCE IV Last administered on 03/24/17 11:05; Start 03/24/17 at 11:05; Stop 03/24/17 at 11:06; Status DC Potassium Chloride/Dextrose/ Sod Cl 1,000 ml @ 100 mls/hr Q10H IV Last administered on 03/24/17 21:58; Start 03/24/17 at 12:00; Stop 03/24/17 at 21:58 ; Status DC Sodium Phosphate 30 mmol/Sodium Chloride 260 ml @ 43.333 mls/ hr ONCE ONCE IV ; Start 03/24/17 at 15:30; Stop 03/24/17 at 21:29; Status DC Potassium Chloride 100 ml @ 50 mls/hr BOLUS ONCE IV Last administered on 03/24 15:30; Start 03/24/17 at 15:30; Stop 03/24/17 at 17:29; Status DC Piperacillin Sod/ Tazobactam Sod 100 ml @ 200 mls/hr Q6H IV Last administered on 03/27/17 09:06; Start 03/24/17 at 22:00; Stop 03/27/17 at 11:18; Status DC Potassium Chloride/Dextrose/ Sod Cl (D5-1/2 NS + KCl 10 Meq Inj) 1,000 ml @ 125 mls/hr Q8H IV Last administered on 03/27/17 09:24; Start 03/24/17 at 22:00 ; Stop 03/27/17 at 11:18; Status DC Miscellaneous Information 1 ONCE ONCE .XX ; Start 03/25/17 at 06:45; Stop 03/25 at 06:53; Status DC Miscellaneous Information 1 ONCE ONCE .XX ; Start 03/25/17 at 06:45; Stop 03/25 at 06:53; Status DC Insulin Detemir (Levemir Inj) 10 units Q12HR SQ Last administered on 03/27/17 22:22; Start 03/25/17 at 06:45 Insulin Aspart (NovoLOG SUPPLEMENTAL SCALE) 1 Q4HR SQ Last administered on 04:42; Start 03/25/17 at 08:00 Dextrose (D50w (Vial) Inj) 50 ml UNSCH PRN IV HYPOGLYCEMIA-SEE COMMENTS; Start 03/25/17 at 06:45 Glucagon 1 mg 1 mg UNSCH PRN OTHER HYPOGLYCEMIA-SEE COMMENTS; Start 03/25/17 at 06:45 Insulin Human Regular 100 units/ Sodium Chloride 100 ml @ 0 mls/hr TITRATE IV ; Start 03/25/17 at 07:00; Stop 03/25/17 at 09:00; Status DC Potassium Chloride (KCl 40 Meq Premix Inj) 100 ml @ 25 mls/hr BOLUS ONCE IV Last administered on 03/25/17 10:00; Start 03/25/17 at 07:15; Stop 03/25/17 at 11:14; Status DC Potassium Phos/ Sodium Phos (K-Phos Neutral) 250 mg ONCE ONCE PO Last administered on 03/26/17 17:36; Start 03/26/17 at 16:00; Stop 03/26/17 at 16:01 ; Status DC Propofol (Diprivan 200 Mg/20 ml Inj) 150 mg STK-MED ONCE IV ; Start 03/26/17 at 13:56; Stop 03/26/17 at 13:57; Status DC Date of Insertion: March 22, 2017 Line: Central Venous Catheter Side: Right Location: Femoral A/P Assessment and Plan A/P Acute toxic metabolic encephalopathy-resolved. 4 mm lesion at left foramen of Antony Encephalopathy likely secondary to metabolic derangement. CT head 03/19 revealed a 4 mm lesion a leftt foramen of Morales. Possible colloid cyst-however this was not visible on MRI brain-f/u as outpatient and this was d/w the patient. Acetaminophen for fever Fay/morphine as needed for pain management Severe sepsis-resolved Hypovolemic shock-resolved Lactic acidosis-resolved Lactic acid has cleared. Pertinent cultures 03/23 - blood cultures 2 -negative 03/23 - UA - no growth Sputum cultures with normal respiratory karen Acute respiratory insufficiency secondary to metabolic arrangement - resolved Nasal cannula to maintain saturations greater than or equal to 92% Incentive spirometry while awake Chest x-ray revealed no acute cardio pulmonary findings Nausea/vomiting - resolved. Hyperammonemia - resolved Lower esophageal inflammation versus mass Mild pancreatitis Currently nothing by mouth due to esophageal edema likely secondary to protracted nausea and vomiting Zofran 4 mg every 6 hours as needed for nausea CT abdomen/pelvis revealed distal esophageal swelling/inflammation versus mass. GI consult noted - s/p EGD with esophagitis and gastritis. continue PPI Amylase and lipase normalized Liver function tests within normal limits Lactulose daily. On lactulose 30 cc daily bowel regimen. continue PPI. acute kidney injury - likely prerenal - resolved. CT abdomen/pelvis 03/23 did not reveal hydronephrosis Urine eosinophils negative. Strict intake output- Continue IV hydration Leukocytosis - bandemia - resolving Polycythemia - likely secondary to dehydration - resolved Elevated PTT Monitor CBC daily. Follow trends Repeat PTT in a.m. Doubt factor deficiency DKA-resolved started on Levemir 10 units subcutaneously every 12 hourly and sliding scale insulin. transition to 1800 ADA diet Hemoglobin A1c ; 10.9 Diabetic education provided. Hypophosphatemia- replaced. Prophylaxis - GI - Protonix - DVT - SCD/heparin subcutaneous Discharge Planning dc home later today . see med list. f/u; pcp and GI. d/w the patient. time spent 31 min. Kendra Cope MD Mar 28, 2017 10:17
[2017-03-28 12:00] VITALS: PULSE 79
== END 2017-03-28 11:40 | disposition home or self-care (01) | DRG 871 ==
LOC: PHED 00:02 → PHEDA 02:09 → PHICU 05:25 → PH3A 03-26 11:30
PROVIDERS: ADMIT Internal Medicine; ATTEND Internal Medicine
PROC: 06HN33Z Insertion of Infusion Device into Left Femoral Vein, Percutaneous Approach (ICD-10-PCS; 2017-03-23)
PROC: 0DB68ZX Excision of Stomach, Via Natural or Artificial Opening Endoscopic, Diagnostic (ICD-10-PCS; 2017-03-26)
PROC: 0DB58ZX Excision of Esophagus, Via Natural or Artificial Opening Endoscopic, Diagnostic (ICD-10-PCS; principal; 2017-03-26 13:00)
DX: A41.9 Sepsis, unspecified organism (principal); R65.21 Severe sepsis with septic shock; G92 Toxic encephalopathy; K85.90 Acute pancreatitis without necrosis or infection, unspecified; E13.10 Other specified diabetes mellitus with ketoacidosis without coma; E87.1 Hypo-osmolality and hyponatremia; K92.2 Gastrointestinal hemorrhage, unspecified; R71.0 Precipitous drop in hematocrit; N17.9 Acute kidney failure, unspecified; E72.20 Disorder of urea cycle metabolism, unspecified; E83.41 Hypermagnesemia; D75.1 Secondary polycythemia; E86.0 Dehydration; E87.6 Hypokalemia; E83.39 Other disorders of phosphorus metabolism; K44.9 Diaphragmatic hernia without obstruction or gangrene; G93.0 Cerebral cysts; K29.70 Gastritis, unspecified, without bleeding; K20.9 Esophagitis, unspecified; D50.0 Iron deficiency anemia secondary to blood loss (chronic); I10 Essential (primary) hypertension; F10.10 Alcohol abuse, uncomplicated
CPT/HCPCS: 36556; 36600; 70450; 70553; 71010; 74150; 80048; 80053; 80061; 80202; 80307; 81001; 82010; 82140; 82150; 82550; 82570; 82800; 82805; 82948; 83036; 83605; 83690; 83735; 84100; 84155; 84300; 84443; 84484; 85007; 85025; 85027; 85610; 85730; 87040; 87070; 87086; 87205; 87641; 88305; 88312; 93005; 96360; 96361; 96374; A9579; C9113; J0610; J1644; J1815; J1817; J2270; J2405; J2543; J2765; J3370; J3411; J3480; J7030; J7050; J7070

== ENCOUNTER 2017-04-18 17:37 | Emergency (ER) | payer BC ==
[~2017-04-18] VITALS: Ht 170.2 cm; Wt 84.0 kg
[~2017-04-18 17:37] MED LIST: LEVEMIR SQ; NOVOLOGSS SQ; PROT40TA PO
[2017-04-18 17:51] VITALS: BP 101/71; PULSE 82; RESP 20; TEMP 98.7; O2SAT 97
--- NOTE | 2017-04-18 18:13 | PD ---
HPI Chief Complaint: GI Complaint Time Seen by Provider: 17:56 Travel History International Travel<30 days: No Contact w/Intl Traveler<30days: No Traveled to known affect area: No History of Present Illness HPI This 38-year-old male is complaining of vomiting. He says he had several bouts of vomiting today. There has not been any diarrhea. He was admitted to the hospital month ago with vomiting. At that time he was found to be in diabetic ketoacidosis. He had a CT scan which showed some thickening of the lower esophagus and an endoscopy was found to have severe esophagitis. He has been on proton pump inhibitor. He was doing well until a couple of days ago. He estimates that he vomited 15 times today. He says that his blood sugar has been under control. It was about 200 earlier today PFS Past Medical History Diabetes: Yes Patient Takes Glucophage: No Diminished Hearing: No GERD: Yes Social History Alcohol Use: No Tobacco Use: No Substance Use: No Allergies-Medications (Allergen,Severity, Reaction): Coded Allergies: No Known Allergies (Unverified , 03/23/17) Reported Meds & Prescriptions Reported Meds & Active Scripts Active Zofran Odt (Ondansetron Odt) 4 Mg Tab 4 Mg SL Q8HR PRN Novolog Inj (Insulin Aspart) 100 Unit/Ml Inj 1 Unit SQ Q4HR 30 Days accu-check AC/HS with sliding scale coverage; 150-200 two units 201-250 four units 251-300 six units 301-350 eight units 351-400 ten units inform PCP if < 70 or > 400. Protonix (Pantoprazole Sodium) 40 Mg Tab 40 Mg PO DAILY Levemir Inj (Insulin Detemir) 1,000 unit/ 10 ML Vial 10 Units SQ Q12HR 30 Days Review of Systems General / Constitutional: No: Fever, Chills Eyes: No: Diploplia HENT: No: Headaches Cardiovascular: No: Chest Pain or Discomfort, Palpitations Respiratory: No: Shortness of Breath Gastrointestinal: Positive: Nausea, Vomiting, No: Diarrhea Genitourinary: No: Frequency, Dysuria Musculoskeletal: No: Myalgias Physical Exam Narrative GENERAL: Well-developed male SKIN: Focused skin assessment warm/dry. HEAD: Atraumatic. Normocephalic. EYES: Pupils equal and round. No scleral icterus. No injection or drainage. ENT: No nasal bleeding or discharge. Mucous membranes pink and moist. NECK: Trachea midline. No JVD. CARDIOVASCULAR: Regular rate and rhythm. No murmur appreciated. RESPIRATORY: No accessory muscle use. Clear to auscultation. Breath sounds equal bilaterally. GASTROINTESTINAL: Abdomen soft, non-tender, nondistended. Hepatic and splenic margins not palpable. MUSCULOSKELETAL: No obvious deformities. No clubbing. No cyanosis. No edema. NEUROLOGICAL: Awake and alert. No obvious cranial nerve deficits. Motor grossly within normal limits. Normal speech. PSYCHIATRIC: Appropriate mood and affect; insight and judgment normal. Data Data Last Documented VS Vital Signs Date Time Temp Pulse Resp B/P Pulse Ox O2 Delivery O2 Flow Rate FiO2 04/18/17 19:20 83 16 115/65 98 Room Air 04/18/17 17:51 98.7 Orders Complete Blood Count With Diff (04/18/17 18:07) Comprehensive Metabolic Panel (04/18/17 18:07) Lipase (04/18/17 18:07) Urinalysis - C+S If Indicated (04/18/17 18:07) Beta Hydroxybutyrate (Acetone) (04/18/17 18:07) Sodium Chlor 0.9% 1000 Ml Inj (Ns 1000 M (04/18/17 18:15) Ondansetron Inj (Zofran Inj) (04/18/17 18:15) Abdomen, Flat & Upright (04/18/17 18:09) Ondansetron Inj (Zofran Inj) (04/18/17 19:45) Labs Laboratory Tests Test 04/18/17 04/18/17 18:12 18:30 White Blood Count 6.3 TH/MM3 Red Blood Count 4.83 MIL/MM3 Hemoglobin 14.7 GM/DL Hematocrit 42.7 % Mean Corpuscular Volume 88.4 FL Mean Corpuscular Hemoglobin 30.4 PG Mean Corpuscular Hemoglobin 34.4 % Concent Red Cell Distribution Width 12.2 % Platelet Count 260 TH/MM3 Mean Platelet Volume 9.4 FL Neutrophils (%) (Auto) 60.3 % Lymphocytes (%) (Auto) 31.6 % Monocytes (%) (Auto) 7.1 % Eosinophils (%) (Auto) 0.5 % Basophils (%) (Auto) 0.5 % Neutrophils # (Auto) 3.9 TH/MM3 Lymphocytes # (Auto) 2.0 TH/MM3 Monocytes # (Auto) 0.4 TH/MM3 Eosinophils # (Auto) 0.0 TH/MM3 Basophils # (Auto) 0.0 TH/MM3 CBC Comment DIFF FINAL Differential Comment Sodium Level 143 MEQ/L Potassium Level 3.4 MEQ/L Chloride Level 106 MEQ/L Carbon Dioxide Level 26.1 MEQ/L Anion Gap 11 MEQ/L Blood Urea Nitrogen 11 MG/DL Creatinine 0.81 MG/DL Estimat Glomerular Filtration 104 ML/MIN Rate Random Glucose 173 MG/DL Calcium Level 9.1 MG/DL Total Bilirubin 1.1 MG/DL Aspartate Amino Transf 11 U/L (AST/SGOT) Alanine Aminotransferase 17 U/L (ALT/SGPT) Alkaline Phosphatase 65 U/L Total Protein 7.0 GM/DL Albumin 3.1 GM/DL Lipase 114 U/L B-Hydroxybutyrate 1.86 MMOL/L Urine Color YELLOW Urine Turbidity CLEAR Urine pH 7.5 Urine Specific Starke 1.026 Urine Protein TRACE mg/dL Urine Glucose (UA) NEG mg/dL Urine Ketones 80 OR GREATER mg/dL Urine Occult Blood NEG Urine Nitrite NEG Urine Bilirubin NEG Urine Leukocyte Esterase NEG Urine RBC /hpf Urine WBC 0-2 /hpf Urine Squamous Epithelial 0-5 /hpf Cells Urine Mucus MOD /lpf Microscopic Urinalysis Comment CULT NOT INDICATED MDM Medical Decision Making Medical Screen Exam Complete: Yes Emergency Medical Condition: Yes Medical Record Reviewed: Yes Differential Diagnosis Differential includes DKA, uncontrolled diabetes, viral illness Narrative Course Patient's sugar is 170 and his diabetes appears well controlled. X-ray does not show any evidence of obstruction. Given some IV fluids and Zofran with some improvement. I'm going to release him with Zofran. This may be a viral illness causing vomiting. There is no evidence of obstruction Diagnosis Primary Impression: Acute vomiting Scripts Ondansetron Odt (Zofran Odt)4 Mg Tab4 Mg SL Q8HR PRN (Nausea/Vomiting) #15 TAB Ref 0 Prov:Ponce Carter MD 04/18/17 Disposition: 01 DISCHARGE HOME Condition: Stable Ponce Carter MD Apr 18, 2017 18:13
[2017-04-18] MEDS ORDERED: ONDANSETRON HCL 4 MG/2 ML VIAL IV PUSH ONE ×2 (18:15→19:45)
[2017-04-18] MEDS ORDERED: SODIUM CHLOR 0.9% 1000 ML INJ 1,000 ML IV ONE (18:15)
[2017-04-18 18:25] LABS: AUTOMATED NEUTROPHIL # 3.9 TH/MM3 (1.8-7.7); BASOPHIL % 0.5 % (0.0-2.0); EOSINOPHIL % 0.5 % (0.0-4.0); HEMATOCRIT 42.7 % (39.0-51.0); HEMO FLAGS DIFF FINAL; LYMPH % 31.6 % (9.0-44.0); MEAN CELL VOLUME 88.4 FL (80.0-100.0); MEAN CORPUSCULAR HEMOGLOBIN 30.4 PG (27.0-34.0); MEAN CORPUSCULAR HGB CONC 34.4 % (32.0-36.0); MONO % 7.1 % (0.0-8.0); NEUT % 60.3 % (16.0-70.0); PLATELET COUNT 260 TH/MM3 (150-450); RED BLOOD COUNT 4.83 MIL/MM3 (4.50-5.90); RED CELL DISTRIBUTION WIDTH 12.2 % (11.6-17.2); WHITE BLOOD COUNT 6.3 TH/MM3 (4.0-11.0)
[2017-04-18 18:27] LABS: CHLORIDE 106 MEQ/L (98-107); POTASSIUM 3.4 MEQ/L (3.5-5.1); SODIUM (NA) 143 MEQ/L (136-145)
[2017-04-18 18:31] LABS: ANION GAP 11 MEQ/L (5-15); BICARBONATE 26.1 MEQ/L (21.0-32.0); BLOOD UREA NITROGEN 11 MG/DL (7-18)
[2017-04-18 18:34] LABS: ALT (GPT) 17 U/L (12-78); AST (GOT) 11 U/L (15-37); GLOMERULAR FILTRATION RATE 104 ML/MIN (>89)
[2017-04-18 18:35] LABS: TOTAL BILIRUBIN ADULT 1.1 MG/DL (0.2-1.0)
[2017-04-18 18:37] LABS: ALKALINE PHOSPHATASE 65 U/L (45-117)
[2017-04-18 18:45] LABS: BETA-HYDROXYBUTYRATE 1.86 MMOL/L (0.00-0.39)
[2017-04-18 18:50] LABS: BLOOD, URINE NEG (NEG); GLUCOSE,URINE NEG (NEG); NITRITE,URINE NEG (NEG); PH, URINE 7.5 (5.0-8.5)
[2017-04-18 18:57] LABS: KETONE, URINE 80 OR GREATER mg/dL (NEG)
[2017-04-18 19:02] LABS: URINE COLOR YELLOW (YELLW/STRAW)
[2017-04-18 19:03] LABS: COMMENT (UR) CULT NOT INDICATED; CULTURE IF INDICATED CULT NOT INDICATED; MUCUS URINE MOD /lpf (OCC); SQUAMOUS EPITHELIAL CELL URINE 0-5 /hpf (0-5); WBC, URINE 0-2 /hpf (0-5)
--- NOTE | 2017-04-18 19:17 | RADRPT ---
EXAM DATE/TIME: 04/18/2017 18:49 [facility] COMPARISON: CT ABDOMEN W/O CONTRAST, March 23, 2017, 11:11. INDICATIONS : Patient has been vomiting and short of breath since yesterday. MEDICAL HISTORY : Diabetes mellitus type II. SURGICAL HISTORY : None. ENCOUNTER: Initial ACUITY: 1 day PAIN SCORE: 10/10 LOCATION: Bilateral Abdomen. FINDINGS: Supine and upright views of the abdomen were performed. Irrelative paucity of bowel gas present. Ther e is a small amount of gas noted in portions of the transverse colon. There are overlying electrocard iogram leads. No air fluid levels are seen. No abnormal masses, calcifications, or organomegaly is s een. The visualized lower lungs are clear. No evidence of free intraperitoneal gas. The osseous st ructures are unremarkable. CONCLUSION: Nonspecific bowel gas pattern with relative paucity of bowel gas. There is no free air. Qamar Childers MD on April 18, 2017 at 19:13 Board Certified Radiologist. This report was verified electronically.
[2017-04-18 19:20] VITALS: BP 115/65; PULSE 83; RESP 16; O2SAT 98
[2017-04-18] MEDS ORDERED: ZOFR4TAB3 SL (19:34)
== END 2017-04-18 20:03 | disposition home or self-care (01) ==
LOC: PHED 17:37
DX: R11.10 Vomiting, unspecified (principal); E11.8 Type 2 diabetes mellitus with unspecified complications; K21.9 Gastro-esophageal reflux disease without esophagitis
CPT/HCPCS: 74020; 80053; 81001; 82010; 83690; 85025; 96361; 96374; 96375; 99284; J2405; J7030

== ENCOUNTER 2017-04-20 10:44 | Emergency (ER) | payer BC ==
[~2017-04-20] VITALS: Ht 170.2 cm; Wt 81.0 kg
[~2017-04-20 10:44] MED LIST changes: +ZOFR4TAB3 SL
[2017-04-20 10:45] VITALS: BP 134/93; PULSE 67; RESP 18; TEMP 98.4; O2SAT 99
[2017-04-20] MEDS ORDERED: SODIUM CHLORIDE 0.9% FLUSH 10 ML FLUSH IV FLUSH PRN (11:45)
[2017-04-20] MEDS ORDERED: SODIUM CHLOR 0.9% 1000 ML INJ 1,000 ML IV ONE (11:45)
[2017-04-20] MEDS ORDERED: ONDANSETRON HCL 4 MG/2 ML VIAL IVP ONE (11:45)
[2017-04-20] MEDS ORDERED: SODIUM CHLOR 0.9% 1000 ML INJ 1,000 ML IV SCH (11:45)
[2017-04-20] MEDS ORDERED: FLUCONAZOLE 400 MG PREMIX BAG 200 ML IV ONE (12:00)
--- NOTE | 2017-04-20 12:05 | PD ---
HPI Chief Complaint: GI Complaint Time Seen by Provider: 11:45 Travel History International Travel<30 days: No Contact w/Intl Traveler<30days: No Traveled to known affect area: No History of Present Illness HPI Patient is a 41-year-old type II insulin-dependent diabetic who presents the emergency department with complaint of intractable nausea vomiting and epigastric discomfort. Patient was admitted to our hospital earlier this month with DKA. He had thickening of the distal esophagus on CT of the abdomen and pelvis and had follow-up endoscopy. This showed esophagitis and gastritis. Biopsies were taken. Patient was treated for DKA and discharged to home and has been doing well in the interim until 4 days ago. He began to have recurrent nausea vomiting and epigastric abdominal discomfort. Was seen in our ED 2 days ago with unremarkable laboratory workup an abdominal x-ray, treated symptomatically and discharged home. He is back because his symptoms is worsened and he is unable to tolerate any liquids at home. Blood glucoses have been wrenching in the low 100s to 200s. He has been compliant with the PPI he was discharged to home on. He has not yet followed up with GI and does not know the results of his EGD biopsies. EMR is reviewed revealing EGD biopsy with gastritis and esophagitis, no evidence of malignancy. There was evidence of hyphae in the blackened esophagus consistent with esophageal candidiasis. Patient states that he has not been treated for this. PFSH Past Medical History Diabetes: Yes (Type 2 on insulin ) Patient Takes Glucophage: No Diminished Hearing: No GERD: Yes Social History Alcohol Use: No Tobacco Use: No Substance Use: No Allergies-Medications (Allergen,Severity, Reaction): Coded Allergies: No Known Allergies (Unverified , 04/20/17) Reported Meds & Prescriptions Reported Meds & Active Scripts Active Zofran Odt (Ondansetron Odt) 4 Mg Tab 4 Mg SL Q8HR PRN Novolog Inj (Insulin Aspart) 100 Unit/Ml Inj 1 Unit SQ Q4HR 30 Days accu-check AC/HS with sliding scale coverage; 150-200 two units 201-250 four units 251-300 six units 301-350 eight units 351-400 ten units inform PCP if < 70 or > 400. Protonix (Pantoprazole Sodium) 40 Mg Tab 40 Mg PO DAILY Levemir Inj (Insulin Detemir) 1,000 unit/ 10 ML Vial 10 Units SQ Q12HR 30 Days Review of Systems Except as stated in HPI: all other systems reviewed are Neg Physical Exam Narrative GENERAL: uncomfortable male in no acute distress SKIN: Focused skin assessment warm/dry. HEAD: Normocephalic. EYES: No scleral icterus. No injection or drainage. ENT: Mucous membranes pink and moist. NECK: Supple CARDIOVASCULAR: Regular rate and rhythm. RESPIRATORY: No accessory muscle use. GASTROINTESTINAL: Abdomen soft, non-tender, nondistended. Hepatic and splenic margins not palpable. MUSCULOSKELETAL: No obvious deformities. No edema. NEUROLOGICAL: Awake and alert. Normal speech. PSYCHIATRIC: Appropriate mood and affect; insight and judgment normal. Data Data Last Documented VS Vital Signs Date Time Temp Pulse Resp B/P Pulse Ox O2 Delivery O2 Flow Rate FiO2 04/20/17 10:45 98.4 67 18 134/93 99 Orders Blood Glucose (04/20/17 11:17) Complete Blood Count With Diff (04/20/17 11:24) Comprehensive Metabolic Panel (04/20/17 11:24) Lipase (04/20/17 11:24) Beta Hydroxybutyrate (Acetone) (04/20/17 11:24) Iv Access Insert/Monitor (04/20/17 11:45) Ecg Monitoring (04/20/17 11:45) Oximetry (04/20/17 11:45) Ondansetron Inj (Zofran Inj) (04/20/17 11:45) Sodium Chlor 0.9% 1000 Ml Inj (Ns 1000 M (04/20/17 11:45) Sodium Chloride 0.9% Flush (Ns Flush) (04/20/17 11:45) Sodium Chlor 0.9% 1000 Ml Inj (Ns 1000 M (04/20/17 11:45) Fluconazole 400 Mg Premix Bag (Diflucan (04/20/17 12:00) Labs Laboratory Tests Test 04/20/17 12:00 White Blood Count 6.9 TH/MM3 Red Blood Count 5.21 MIL/MM3 Hemoglobin 15.6 GM/DL Hematocrit 45.9 % Mean Corpuscular Volume 88.1 FL Mean Corpuscular Hemoglobin 29.9 PG Mean Corpuscular Hemoglobin 33.9 % Concent Red Cell Distribution Width 12.4 % Platelet Count 266 TH/MM3 Mean Platelet Volume 9.8 FL Neutrophils (%) (Auto) 69.0 % Lymphocytes (%) (Auto) 26.9 % Monocytes (%) (Auto) 3.4 % Eosinophils (%) (Auto) 0.2 % Basophils (%) (Auto) 0.5 % Neutrophils # (Auto) 4.8 TH/MM3 Lymphocytes # (Auto) 1.9 TH/MM3 Monocytes # (Auto) 0.2 TH/MM3 Eosinophils # (Auto) 0.0 TH/MM3 Basophils # (Auto) 0.0 TH/MM3 CBC Comment DIFF FINAL Differential Comment Sodium Level 142 MEQ/L Potassium Level 3.8 MEQ/L Chloride Level 107 MEQ/L Carbon Dioxide Level 23.7 MEQ/L Anion Gap 11 MEQ/L Blood Urea Nitrogen 9 MG/DL Creatinine 0.75 MG/DL Estimat Glomerular Filtration 114 ML/MIN Rate Random Glucose 158 MG/DL Calcium Level 9.2 MG/DL Total Bilirubin 1.1 MG/DL Aspartate Amino Transf 17 U/L (AST/SGOT) Alanine Aminotransferase 17 U/L (ALT/SGPT) Alkaline Phosphatase 64 U/L Total Protein 7.1 GM/DL Albumin 3.2 GM/DL Lipase 127 U/L B-Hydroxybutyrate 1.35 MMOL/L [facility] Medical Decision Making Medical Screen Exam Complete: Yes Emergency Medical Condition: Yes Medical Record Reviewed: Yes Differential Diagnosis 41-year-old type 2 insulin-dependent diabetic male here with intractable nausea and vomiting 4 days. Differential includes dehydration, electrolyte abnormality, DKA, HHS, candidal esophagitis, GERD and less likely pancreatitis or hepatobiliary pathology Narrative Course Patient placed on monitor, IV established and blood obtained. Given 4 mg Zofran , 400 mg fluconazole IV, and 2 L normal saline bolus. CBC, CMP, lipase, beta hydroxybutyrate notable for beta hydroxybutyrate minimally elevated at 1.35. No anion gap or acidosis on chemistry panel. Patient was given oral challenge. He tolerated this well will be discharged home with fluconazole. Diagnosis Primary Impression: Candidal esophagitis Referrals: Lacey Sabillon MD 2 days Call and Saturday for follow-up appointment Additional Instructions: Fluconazole as prescribed. Call GI on Saturday for follow-up appointment. Med/Other Pt SpecificInfo: Prescription(s) given Scripts Fluconazole 200 Mg [id number] Mg PO DAILY 21 Days Ref 0 Prov:Hortencia Hunter MD 04/20/17 Disposition: DISCHARGE HOME Condition: Stable Hortencia Hunter MD Apr 20, 2017 12:05
[2017-04-20 12:11] LABS: AUTOMATED NEUTROPHIL # 4.8 TH/MM3 (1.8-7.7); BASOPHIL % 0.5 % (0.0-2.0); EOSINOPHIL % 0.2 % (0.0-4.0); HEMATOCRIT 45.9 % (39.0-51.0); HEMO FLAGS DIFF FINAL; LYMPH % 26.9 % (9.0-44.0); LYMPHOCYTE # 1.9 TH/MM3 (1.0-4.8); MEAN CELL VOLUME 88.1 FL (80.0-100.0); MEAN CORPUSCULAR HEMOGLOBIN 29.9 PG (27.0-34.0); MEAN CORPUSCULAR HGB CONC 33.9 % (32.0-36.0); MONO % 3.4 % (0.0-8.0); PLATELET COUNT 266 TH/MM3 (150-450); RED BLOOD COUNT 5.21 MIL/MM3 (4.50-5.90); RED CELL DISTRIBUTION WIDTH 12.4 % (11.6-17.2); WHITE BLOOD COUNT 6.9 TH/MM3 (4.0-11.0)
[2017-04-20 12:19] LABS: CHLORIDE 107 MEQ/L (98-107); POTASSIUM 3.8 MEQ/L (3.5-5.1); SODIUM (NA) 142 MEQ/L (136-145)
[2017-04-20 12:23] LABS: ANION GAP 11 MEQ/L (5-15); BICARBONATE 23.7 MEQ/L (21.0-32.0); BLOOD UREA NITROGEN 9 MG/DL (7-18)
[2017-04-20 12:25] LABS: ALT (GPT) 17 U/L (12-78); AST (GOT) 17 U/L (15-37); GLOMERULAR FILTRATION RATE 114 ML/MIN (>89)
[2017-04-20 12:27] LABS: TOTAL BILIRUBIN ADULT 1.1 MG/DL (0.2-1.0)
[2017-04-20 12:28] LABS: ALKALINE PHOSPHATASE 64 U/L (45-117)
[2017-04-20 12:37] LABS: BETA-HYDROXYBUTYRATE 1.35 MMOL/L (0.00-0.39)
[2017-04-20] MEDS ORDERED: FLUC200T2 PO (13:12)
[2017-04-20 14:58] VITALS: O2SAT 98
== END 2017-04-20 14:59 | disposition home or self-care (01) ==
LOC: PHED 10:44
DX: B37.81 Candidal esophagitis (principal); E11.8 Type 2 diabetes mellitus with unspecified complications; Z79.4 Long term (current) use of insulin
CPT/HCPCS: 80053; 82010; 83690; 85025; 96365; 96366; 96375; 99284; J1450; J2405; J7030